=== PATIENT | female | born 1955 | race Caucasian/White ===

== ENCOUNTER 2019-06-04 23:00 | Emergency (ER) | payer MEDICARE, MEDICAID ==
[~2019-06-04] VITALS: Ht 157.5 cm; Wt 78.0 kg
[~2019-06-04 23:00] MED LIST: ACET-1013 PO; ALBU18HF2 INH; BAC10T PO; BUSP10TA11 PO; CALC-1197 PO; DILT120C52 PO; DULO-31 PO; FENO160T PO; FURO40TA4 PO; LEVO50TA67 PO; LISI40TA4 PO; MAGN400C PO; OMEP-50 PO; QUET-1 PO
--- NOTE | 2019-06-04 23:41 | NUR ---
PT HAS RETURNED FROM CT AND DR. FENG BACK IN ROOM TO UPDATED PT AND FAMILY THAT SHE DID A PRELIMINARY READ AND DOES NOT SEE ANY FRACTURES. PT TO BE NOP UNTIL FINAL READ. A&OX4.
[2019-06-04] MEDS ORDERED: LIDOcaine 1% W/epiNEPHrine 1:200,000 10ml vial IJ ONE (23:55)
--- NOTE | 2019-06-05 01:40 | NUR ---
PTS LEFT EYE BROW LAC IRRIGATED, MD REPROTS SHE DOES NOT WANT SUTURES BUT MAY BE AGREEABLE TO GLUE. PT WITH SON IN LAW, JOE, AT BEDSIDE.
[2019-06-05 02:17] VITALS: BP 141/94
--- NOTE | 2019-06-05 02:26 | NUR ---
PT AMBULATING WITH STEAD GAIT USING WALKER AND NO ASSIST. PT REPROTS SHE FEELS GOOD AND IS READY TO RETURNE TO [facility].
--- NOTE | 2019-06-05 02:47 | NUR ---
report called to marquis storey. lori jones pt will usually be transported [facility]. i will have gloria mcclendon work on this.
[2019-06-05] MEDS ORDERED: acetaminophen 325mg tablet PO ONE (02:55)
== END 2019-06-05 04:46 | disposition home or self-care (01) ==
LOC: ER 23:00
DX: S01.81XA Laceration without foreign body of other part of head, initial encounter (principal); I11.0 Hypertensive heart disease with heart failure; I50.9 Heart failure, unspecified; J44.9 Chronic obstructive pulmonary disease, unspecified; K21.9 Gastro-esophageal reflux disease without esophagitis; E05.90 Thyrotoxicosis, unspecified without thyrotoxic crisis or storm; Z86.711 Personal history of pulmonary embolism; Z72.89 Other problems related to lifestyle; Z98.890 Other specified postprocedural states; Z88.8 Allergy status to other drugs, medicaments and biological substances; Z79.899 Other long term (current) drug therapy; W06.XXXA Fall from bed, initial encounter; Y93.89 Activity, other specified; Y92.89 Other specified places as the place of occurrence of the external cause; Y99.8 Other external cause status
CPT/HCPCS: 12011; 70450; 70486; 93005; 99285

== ENCOUNTER 2019-06-07 20:25 | Emergency (ER) | payer MEDICARE, MEDICAID ==
[~2019-06-07] VITALS: Ht 157.5 cm; Wt 77.8 kg
[2019-06-07 20:36] VITALS: BP 150/86
--- NOTE | 2019-06-07 21:00 | NUR ---
DR VILLA AT BEDSIDE EVALUATING PT, PT DOES NOT NEED IV START.
[2019-06-07] MEDS ORDERED: acetaminophen 325mg tablet PO ONE (21:35)
--- NOTE | 2019-06-07 21:43 | NUR ---
DR. Lyon CLEARED PT OF ANY NEW HIP INJURIES. PT WAS GIVEN PO TYLENOL.
[2019-06-08] MEDS ORDERED: QUET100T33 PO (23:35)
== END 2019-06-07 21:42 | disposition home or self-care (01) ==
LOC: ER 20:26
DX: S00.83XD Contusion of other part of head, subsequent encounter (principal); S00.03XD Contusion of scalp, subsequent encounter; F07.81 Postconcussional syndrome; I50.9 Heart failure, unspecified; I11.0 Hypertensive heart disease with heart failure; J44.9 Chronic obstructive pulmonary disease, unspecified; I48.0 Paroxysmal atrial fibrillation; Z79.01 Long term (current) use of anticoagulants; K21.9 Gastro-esophageal reflux disease without esophagitis; Z72.89 Other problems related to lifestyle; Z88.8 Allergy status to other drugs, medicaments and biological substances; Z79.1 Long term (current) use of non-steroidal anti-inflammatories (NSAID); Z79.899 Other long term (current) drug therapy; W06.XXXD Fall from bed, subsequent encounter
CPT/HCPCS: 70450; 99284

== ENCOUNTER 2019-06-08 20:37 | Inpatient (IN) | payer MEDICARE, MEDICAID ==
[~2019-06-08] VITALS: Ht 160 cm; Wt 80.0 kg
[2019-06-08] MEDS ORDERED: pantoprazole 40 MG vial IV ONE (21:25)
[2019-06-08 21:32] LABS: BASOPHILS % (AUTO) 0.7 % (0-1); EOSINOPHILS % (AUTO) 0.4 % (0-6); LYMPHOCYTES # (AUTO) 0.8 X10'3 (1.1-4.8); MEAN CORPUSCULAR HEMOGLOBIN 32.2 PG (27.0-31.0); MEAN CORPUSCULAR HGB CONC 34.1 g/dL (33.0-36.5); MEAN CORPUSCULAR VOLUME 94.5 FL (78-98); MEAN PLATELET VOLUME 9.3 FL (7.4-10.4); MONOCYTES # (AUTO) 0.6 X10'3 (0-0.9); MONOCYTES % (AUTO) 9.7 % (2-12); NEUTROPHILS # (AUTO) 4.7 X10'3 (1.8-7.7); NEUTROPHILS % (AUTO) 76.2 % (42-75); PLATELET COUNT 213 X10'3 (140-440); RED BLOOD COUNT 1.66 X10'6 (4.20-5.60); RED CELL DISTRIBUTION WIDTH 17.1 % (11.5-14.5); WHITE BLOOD COUNT 6.2 X10'3 (4.5-11.0)
[2019-06-08 21:36] LABS: HEMATOCRIT 15.7 % (35.0-45.0); HEMOGLOBIN 5.3 g/dl (12.0-16.0)
[2019-06-08 21:38] LABS: OCCULT BLOOD STOOL POSITIVE (Neg)
[2019-06-08 21:43] LABS: ALANINE AMINOTRANSFERASE 41 U/L (12-78); ALBUMIN 2.3 G/DL (3.4-5.0); ALBUMIN/GLOBULIN RATIO 0.7 (1.1-1.5); ALKALINE PHOSPHATASE 79 IU/L (46-116); ANION GAP 9 (8-16); ASPARTATE AMINO TRANSFERASE 96 U/L (10-37); BILIRUBIN,TOTAL 0.6 MG/DL (0.1-1.0); BLOOD UREA NITROGEN 65 MG/DL (7-18); BUN/CREATININE RATIO 22.4 (6.6-38.0); CALCIUM 8.2 MG/DL (8.5-10.1); CHLORIDE 112 MMOL/L (99-107); GLUCOSE 110 MG/DL (70-104); SODIUM 145 MMOL/L (135-145); TOTAL CARBON DIOXIDE 24.4 MMOL/L (24-32); TOTAL PROTEIN 5.7 G/DL (6.4-8.2); eGFR 16 ML/MIN
--- NOTE | 2019-06-08 21:45 | NUR ---
Protonix drip time changed to start now.
[2019-06-08 21:46] LABS: CLARITY,URINE SLIGHTLY CLOUDY (Clear); COLOR,URINE YELLOW (Yellow); GLUCOSE, URINE NEGATIVE (Neg); KETONES,URINE NEGATIVE (Neg); LEUKOCYTE ESTERASE ,URINE NEGATIVE (Neg); NITRITES, URINE NEGATIVE (Neg); OCCULT BLOOD,URINE SMALL (Neg); PROTEIN,URINE >=300 mg/dl (Neg); UROBILINOGEN,URINE 0.2 E.U/dL (0.2-1.0)
[2019-06-08 21:51] LABS: PARTIAL THROMBOPLASTIN TIME 37 SECONDS (22-32)
[2019-06-08 21:52] LABS: POTASSIUM 6.9 MMOL/L (3.5-5.1)
[2019-06-08 21:54] LABS: UA COLLECTION TYPE STRAIGHT CATH
[2019-06-08 21:55] LABS: AMORPHOUS PHOSPHATES 2+; BACTERIA,URINE FEW /HPF (Neg); RBC,URINE 0-2 /HPF (0-2); SQUAMOUS EPITHELIAL CELL,UR FEW /LPF (FEW); WBC,URINE 0-4 /HPF (0-4)
[2019-06-08] MEDS ORDERED: dextrose 50%-water 50ml dispensing syringe IV ONE (22:05)
[2019-06-08] MEDS ORDERED: insulin regular, human 10 units/0.1 ml syringe IV ONE (22:05)
[2019-06-08] MEDS ORDERED: albuterol 2.5 MG/3 ML nebule NEB ONE (22:05)
[2019-06-08] MEDS ORDERED: sodium bicarbonate (8.4%) 1 mEq/ml syringe IV ONE (22:05)
[2019-06-08] MEDS ORDERED: insulin regular, human U-100 3ml vial - multi-dose IV ONE (22:10)
[2019-06-08] MEDS ORDERED: sodium bicarbonate (8.4%) inj. 1 MEQ/ML ML IV ONE (22:10)
[2019-06-08] MEDS: pantoprazole 40MG/NS 100ML BAG 100 ML IV SCH (22:23)
[2019-06-08 22:25] VITALS: BP 136/80
[2019-06-08] MEDS ORDERED: calcium gluconate inj. 1 GM in normal saline 100ml IV soln 90 ML IV ONE (22:25)
[2019-06-08] MEDS ORDERED: sodium polystyrene sulfonate 15gm/60ml oral suspension PO ONE (22:25)
[2019-06-08] MEDS ORDERED: OLANZapine 5mg rapidly disint. tablet PO ONE (22:40)
[2019-06-08 22:44] VITALS: BP 95/58
--- NOTE | 2019-06-08 22:45 | NUR ---
MD SHUKLA at bedside for re-evaluation, pt having increasing confusion, unable to follow commands, MD ordered Haldol/Ativan.
[2019-06-08] MEDS ORDERED: LORazepam 2 mg/ml vial IV ONE (22:55)
[2019-06-08] MEDS ORDERED: haloperidol lactate 5mg/ml inj IM STA (23:14)
[2019-06-08 23:35] VITALS: BP 140/87
[2019-06-08] MEDS ORDERED: QUET100T33 PO (23:35)
[2019-06-08] MEDS ORDERED: diphenhydrAMINE 50 mg/ml inj IV ONE (23:50)
[2019-06-08 23:59] VITALS: BP 147/87
[2019-06-09] VITALS (15 sets, daily range): BP systolic 118–168; BP diastolic 66–107
--- NOTE | 2019-06-09 | NUR ---
Haldol and Ativan have had minimal effects, pt still unable to follow commands, MD mcguire at bedside for evaluation, verbal order for Benadryl IV 25mg given, with no improvement in pt condition.
[2019-06-09] MEDS ORDERED: diphenhydrAMINE 50 mg/ml inj IV ONE (00:05)
[2019-06-09] MEDS ORDERED: morphine 4 MG/ML inj SYRINge ONE (00:14)
[2019-06-09] MEDS ORDERED: morphine 4 MG/ML inj SYRINge IV ONE (00:15)
--- NOTE | 2019-06-09 00:35 | NUR ---
Pt finally appears to be sleeping, snoring respirations, pt spo2 88, repositioned pt and placed her on 2 lpm oxygen, spo2 96%. MD Mcleod at bedside, aware, pt will be consulted for ICU admission.
[2019-06-09] MEDS ORDERED: furosemide 10 MG/1 ML 10ml inj IV ONE (00:50)
[2019-06-09] MEDS ORDERED: pantoprazole 40MG/NS 100ML BAG 100 ML IV SCH (01:00)
--- NOTE | 2019-06-09 01:00 | NUR ---
Pt tolerated blood transfusions well, lung clear equal bilateral, verbal order from MD Mcleod for 40 mg Lasix IV for pt heart failure history.
[2019-06-09] MEDS: pantoprazole 40MG/NS 100ML BAG 100 ML IV SCH ×5 (01:49→21:24)
[2019-06-09 01:50] LABS: BASOPHILS % (AUTO) 0.7 % (0-1); EOSINOPHILS % (AUTO) 0.2 % (0-6); HEMOGLOBIN 7.4 g/dl (12.0-16.0); LYMPHOCYTES # (AUTO) 0.7 X10'3 (1.1-4.8); LYMPHOCYTES % (AUTO) 12.1 % (21-51); MEAN CORPUSCULAR HEMOGLOBIN 31.4 PG (27.0-31.0); MEAN CORPUSCULAR HGB CONC 34.1 g/dL (33.0-36.5); MEAN CORPUSCULAR VOLUME 92.2 FL (78-98); MEAN PLATELET VOLUME 9.3 FL (7.4-10.4); MONOCYTES # (AUTO) 0.8 X10'3 (0-0.9); MONOCYTES % (AUTO) 13.5 % (2-12); NEUTROPHILS # (AUTO) 4.4 X10'3 (1.8-7.7); NEUTROPHILS % (AUTO) 73.5 % (42-75); PLATELET COUNT 189 X10'3 (140-440); RED BLOOD COUNT 2.34 X10'6 (4.20-5.60); RED CELL DISTRIBUTION WIDTH 16.2 % (11.5-14.5)
[2019-06-09 01:56] LABS: ALANINE AMINOTRANSFERASE 42 U/L (12-78); ALBUMIN 2.1 G/DL (3.4-5.0); ALBUMIN/GLOBULIN RATIO 0.6 (1.1-1.5); ALKALINE PHOSPHATASE 75 IU/L (46-116); ANION GAP 10 (8-16); ASPARTATE AMINO TRANSFERASE 115 U/L (10-37); BLOOD UREA NITROGEN 64 MG/DL (7-18); BUN/CREATININE RATIO 23.2 (6.6-38.0); CALCIUM 8.4 MG/DL (8.5-10.1); CHLORIDE 113 MMOL/L (99-107); CREATININE 2.76 MG/DL (0.40-0.90); GLUCOSE 94 MG/DL (70-104); SODIUM 144 MMOL/L (135-145); TOTAL CARBON DIOXIDE 21.5 MMOL/L (24-32); TOTAL PROTEIN 5.4 G/DL (6.4-8.2); eGFR 17 ML/MIN
--- NOTE | 2019-06-09 01:57 | NUR ---
JOE: SON IN LAW PHONE NUMBER [phone]
[2019-06-09 01:59] LABS: POTASSIUM 6.4 MMOL/L (3.5-5.1)
[2019-06-09 02:20] LABS: HEMATOCRIT 21.6 % (35.0-45.0)
[2019-06-09] MEDS ORDERED: acetaminophen 325mg tablet PO PRN (02:30)
[2019-06-09] MEDS ORDERED: sodium polystyrene sulfonate 15gm/60ml oral suspension PR ONE (02:30)
[2019-06-09] MEDS ORDERED: ondansetron/PF 4mg/2ml inj IV PRN (02:30)
--- NOTE | 2019-06-09 02:49 | NUR ---
Pt. moved to ED room 16 for close monitoring.
[2019-06-09] MEDS: normal saline 1000ml 1,000 ML IV SCH (02:55)
[2019-06-09] MEDS: morphine 2 MG/ML inj. syringe IV PRN ×4 (03:03→16:35)
[2019-06-09 04:20] LABS: BASOPHILS % (AUTO) 0.5 % (0-1); EOSINOPHILS % (AUTO) 0.1 % (0-6); HEMATOCRIT 23.3 % (35.0-45.0); HEMOGLOBIN 7.8 g/dl (12.0-16.0); LYMPHOCYTES % (AUTO) 15.2 % (21-51); MEAN CORPUSCULAR HEMOGLOBIN 30.9 PG (27.0-31.0); MEAN CORPUSCULAR HGB CONC 33.5 g/dL (33.0-36.5); MEAN CORPUSCULAR VOLUME 92.1 FL (78-98); MEAN PLATELET VOLUME 9.4 FL (7.4-10.4); MONOCYTES # (AUTO) 0.8 X10'3 (0-0.9); NEUTROPHILS # (AUTO) 4.6 X10'3 (1.8-7.7); NEUTROPHILS % (AUTO) 72.2 % (42-75); PLATELET COUNT 206 X10'3 (140-440); RED BLOOD COUNT 2.53 X10'6 (4.20-5.60); RED CELL DISTRIBUTION WIDTH 16.7 % (11.5-14.5); WHITE BLOOD COUNT 6.3 X10'3 (4.5-11.0)
[2019-06-09 05:13] LABS: ALANINE AMINOTRANSFERASE 49 U/L (12-78); ALBUMIN 2.2 G/DL (3.4-5.0); ALBUMIN/GLOBULIN RATIO 0.6 (1.1-1.5); ALKALINE PHOSPHATASE 80 IU/L (46-116); ANION GAP 12 (8-16); ASPARTATE AMINO TRANSFERASE 124 U/L (10-37); BLOOD UREA NITROGEN 64 MG/DL (7-18); CALCIUM 8.1 MG/DL (8.5-10.1); CHLORIDE 113 MMOL/L (99-107); CREATININE 2.91 MG/DL (0.40-0.90); GLUCOSE 101 MG/DL (70-104); SODIUM 146 MMOL/L (135-145); TOTAL CARBON DIOXIDE 21.5 MMOL/L (24-32); TOTAL PROTEIN 5.7 G/DL (6.4-8.2); eGFR 16 ML/MIN
[2019-06-09 05:32] LABS: POTASSIUM 6.1 MMOL/L (3.5-5.1)
--- NOTE | 2019-06-09 06:51 | NUR ---
Patient in room ED 1. I have received report from Nikita LANE RN and had the opportunity to ask questions and assume patient care.
--- NOTE | 2019-06-09 07:30 | NUR ---
Patient arrived from ED. Patient is agitated, impulsive, and resistive to care, she is in 3 point restraints, EJ pulled out in transfer, patient confused and unable to orient to room. VS 97.7 AX, HR 74, RR 30, O2 90% 5L NC. Sitter at bedside.
[2019-06-09] MEDS ORDERED: baclofen 10mg tablet PO PRN (08:00)
[2019-06-09] MEDS: lisinopril 20mg tablet PO SCH ×2 (08:00→12:45)
[2019-06-09] MEDS: furosemide 20MG tablet PO SCH ×2 (08:00→12:45)
[2019-06-09] MEDS ORDERED: pantoprazole 40 MG vial IV SCH (08:00)
[2019-06-09] MEDS ORDERED: pantoprazole 40mg Tablet.DR PO SCH (08:00)
[2019-06-09] MEDS ORDERED: (Fenofibrate 160 MG) PO SCH (08:00)
[2019-06-09] MEDS: levoTHYROXINE 25mcg tablet PO SCH ×2 (08:00→12:45)
[2019-06-09 08:17] LABS: ALBUMIN 2.4 G/DL (3.4-5.0); ANION GAP 12 (8-16); BLOOD UREA NITROGEN 65 MG/DL (7-18); BUN/CREATININE RATIO 20.6 (6.6-38.0); CALCIUM 8.5 MG/DL (8.5-10.1); CHLORIDE 114 MMOL/L (99-107); CREATININE 3.15 MG/DL (0.40-0.90); GLUCOSE 87 MG/DL (70-104); SODIUM 148 MMOL/L (135-145); TOTAL CARBON DIOXIDE 22.5 MMOL/L (24-32); eGFR 15 ML/MIN
[2019-06-09 08:22] LABS: POTASSIUM 6.6 MMOL/L (3.5-5.1)
--- NOTE | 2019-06-09 08:28 | NUR ---
paged Daniela Wong. [phone]. Critical Potassium 6.6. Patient also has protonix gtt 20 ml/hr, Iv protonix 40mg BID and 40 mg protonix daily. Would you like her to get all 3? Derrek [phone]
[2019-06-09] MEDS ORDERED: dextrose 50%-water 50ml dispensing syringe IV ONE (08:55)
[2019-06-09] MEDS ORDERED: NORMAL SALINE IV SCH (08:55)
[2019-06-09] MEDS ORDERED: SODIUM BICARBONATE IV SCH (08:55)
[2019-06-09] MEDS ORDERED: SODIUM ZIRCONIUM CYCLOSILICATE 10 GM POWD.PACK PO ONE (08:55)
[2019-06-09] MEDS ORDERED: calcium chloride inj. 1,000 MG in normal saline 100ml IV soln 90 ML IV ONE (08:55)
[2019-06-09] MEDS ORDERED: insulin regular, human U-100 3ml vial - multi-dose IV ONE (08:55)
--- NOTE | 2019-06-09 10:12 | NUR ---
PAGER ID: [phone] MESSAGE: PLEASE CALL ELIUD LLAMAS REGARDING [id number] DAWKINS. ELIUD LLAMAS
--- NOTE | 2019-06-09 10:21 | NUR ---
Patient transferred to ICU at 1015 to room 2041, report given to Sara ENNIS.
[2019-06-09] MEDS ORDERED: ziprasidone IM 20mg inj **IM only IM STA (10:26)
[2019-06-09] MEDS ORDERED: albuterol 2.5 MG/3 ML nebule CONTNEB ONE (10:50)
[2019-06-09] MEDS ORDERED: LORazepam 2 mg/ml vial ONE (10:53)
[2019-06-09] MEDS: LORazepam 2 mg/ml vial IV PRN ×3 (10:54→23:17)
[2019-06-09] MEDS: sodium bicarbonate (8.4%) inj. 75 MEQ in dextrose 5% water 500ml 500 ML IV SCH ×3 (12:17→22:01)
[2019-06-09] MEDS: duloxetine 30mg CAPSULE.DR PO SCH (12:19)
[2019-06-09] MEDS: diltiazem CD 120mg capsule (once-daily) PO SCH (12:41)
[2019-06-09] MEDS: busPIRone 5mg tablet PO SCH ×2 (12:41→23:58)
[2019-06-09] MEDS: SODIUM ZIRCONIUM CYCLOSILICATE 10 GM POWD.PACK PO SCH ×2 (13:00→22:01)
[2019-06-09 13:03] LABS: ALBUMIN 2.6 G/DL (3.4-5.0); ANION GAP 16 (8-16); BLOOD UREA NITROGEN 67 MG/DL (7-18); BUN/CREATININE RATIO 21.2 (6.6-38.0); CALCIUM 8.8 MG/DL (8.5-10.1); CHLORIDE 114 MMOL/L (99-107); CREATININE 3.16 MG/DL (0.40-0.90); GLUCOSE 87 MG/DL (70-104); POTASSIUM 5.1 MMOL/L (3.5-5.1); SODIUM 150 MMOL/L (135-145); TOTAL CARBON DIOXIDE 20.3 MMOL/L (24-32); eGFR 15 ML/MIN
[2019-06-09] MEDS ORDERED: ziprasidone IM 20mg inj **IM only IM ONE (17:15)
--- NOTE | 2019-06-09 18:20 | NUR ---
Patient in room ICU 2041. I have received report from LOLI Callahan and had the opportunity to ask questions and assume patient care. Patient is restrained x3, Sitter at bedside.
--- NOTE | 2019-06-09 18:20 | NUR ---
Problems reprioritized. Patient report given, questions answered & plan of care reviewed with LOLI Bateman.
[2019-06-09 18:44] LABS: ALBUMIN 2.3 G/DL (3.4-5.0); ANION GAP 12 (8-16); BLOOD UREA NITROGEN 69 MG/DL (7-18); BUN/CREATININE RATIO 20.6 (6.6-38.0); CALCIUM 8.5 MG/DL (8.5-10.1); CHLORIDE 114 MMOL/L (99-107); CREATININE 3.35 MG/DL (0.40-0.90); GLUCOSE 95 MG/DL (70-104); POTASSIUM 5.4 MMOL/L (3.5-5.1); SODIUM 150 MMOL/L (135-145); TOTAL CARBON DIOXIDE 24.3 MMOL/L (24-32); eGFR 14 ML/MIN
[2019-06-09] MEDS ORDERED: non-formulary drug (Magnesium Oxide (Magnesium) 250 MG) PO SCH (21:00)
[2019-06-09] MEDS: calcium carbonate/vitamin D3 tablet PO SCH (23:58)
[2019-06-09] MEDS: quetiapine 100mg tablet PO SCH (23:58)
[2019-06-10] VITALS (24 sets, daily range): BP systolic 112–176; BP diastolic 56–121
[2019-06-10] MEDS: pantoprazole 40MG/NS 100ML BAG 100 ML IV SCH ×3 (01:00→08:15)
[2019-06-10 01:02] LABS: ALBUMIN 2.1 G/DL (3.4-5.0); ANION GAP 9 (8-16); BLOOD UREA NITROGEN 69 MG/DL (7-18); BUN/CREATININE RATIO 20.4 (6.6-38.0); CHLORIDE 114 MMOL/L (99-107); CREATININE 3.39 MG/DL (0.40-0.90); GLUCOSE 97 MG/DL (70-104); POTASSIUM 4.5 MMOL/L (3.5-5.1); SODIUM 150 MMOL/L (135-145); TOTAL CARBON DIOXIDE 27.4 MMOL/L (24-32); eGFR 14 ML/MIN
[2019-06-10] MEDS: sodium bicarbonate (8.4%) inj. 75 MEQ in dextrose 5% water 500ml 500 ML IV SCH ×2 (03:55→05:16)
--- NOTE | 2019-06-10 05:47 | NUR ---
2100 - 0530: Patient remained restrained with sitter at bedside. Patient wakes up suddenly, pulls violently at restraints, unable to orient to surroundings. Ativan administered for agitation. Oral care provided throughout shift with oral swabs and mouth moisturizer applied. Lip balm applied multiple times. Right nare intermittently bleeding, controlled with external pressure.
[2019-06-10 06:04] LABS: BASOPHILS % (AUTO) 0.4 % (0-1); EOSINOPHILS % (AUTO) 0.4 % (0-6); HEMATOCRIT 23.2 % (35.0-45.0); HEMOGLOBIN 7.9 g/dl (12.0-16.0); LYMPHOCYTES # (AUTO) 1.3 X10'3 (1.1-4.8); LYMPHOCYTES % (AUTO) 17.2 % (21-51); MEAN CORPUSCULAR HEMOGLOBIN 31.4 PG (27.0-31.0); MEAN CORPUSCULAR VOLUME 92.5 FL (78-98); MEAN PLATELET VOLUME 9.5 FL (7.4-10.4); MONOCYTES # (AUTO) 0.7 X10'3 (0-0.9); MONOCYTES % (AUTO) 9.3 % (2-12); NEUTROPHILS # (AUTO) 5.5 X10'3 (1.8-7.7); NEUTROPHILS % (AUTO) 72.7 % (42-75); PLATELET COUNT 221 X10'3 (140-440); RED CELL DISTRIBUTION WIDTH 17.6 % (11.5-14.5); WHITE BLOOD COUNT 7.6 X10'3 (4.5-11.0)
--- NOTE | 2019-06-10 06:30 | NUR ---
Patient in room ICU 2041. I have received report from LOLI MARQUES and had the opportunity to ask questions and assume patient care.
--- NOTE | 2019-06-10 06:37 | NUR ---
Problems reprioritized. Patient report given, questions answered & plan of care reviewed with LOLI Bermudez.
[2019-06-10 06:38] LABS: ALANINE AMINOTRANSFERASE 67 U/L (12-78); ALBUMIN/GLOBULIN RATIO 0.6 (1.1-1.5); ALKALINE PHOSPHATASE 72 IU/L (46-116); ANION GAP 8 (8-16); ASPARTATE AMINO TRANSFERASE 141 U/L (10-37); BILIRUBIN,TOTAL 0.6 MG/DL (0.1-1.0); BLOOD UREA NITROGEN 66 MG/DL (7-18); BUN/CREATININE RATIO 19.9 (6.6-38.0); CALCIUM 7.8 MG/DL (8.5-10.1); CHLORIDE 114 MMOL/L (99-107); CREATININE 3.31 MG/DL (0.40-0.90); GLUCOSE 97 MG/DL (70-104); POTASSIUM 4.1 MMOL/L (3.5-5.1); SODIUM 149 MMOL/L (135-145); TOTAL CARBON DIOXIDE 27.1 MMOL/L (24-32); TOTAL PROTEIN 5.2 G/DL (6.4-8.2); eGFR 14 ML/MIN
[2019-06-10] MEDS: LORazepam 2 mg/ml vial IV PRN ×2 (07:09→17:58)
[2019-06-10] MEDS: albuterol 2.5 MG/3 ML nebule NEB PRN ×2 (07:21→19:12)
[2019-06-10] MEDS ORDERED: ziprasidone IM 20mg inj **IM only IM ONE ×2 (07:45→19:20)
[2019-06-10] MEDS: busPIRone 5mg tablet PO SCH ×2 (07:57→20:58)
[2019-06-10] MEDS: duloxetine 30mg CAPSULE.DR PO SCH (07:58)
[2019-06-10] MEDS: diltiazem CD 120mg capsule (once-daily) PO SCH (07:59)
[2019-06-10] MEDS: SODIUM ZIRCONIUM CYCLOSILICATE 10 GM POWD.PACK PO SCH (08:00)
[2019-06-10] MEDS: furosemide 20MG tablet PO SCH ×2 (08:00→08:45)
[2019-06-10] MEDS: fenofibrate 145mg tablet PO SCH (08:06)
[2019-06-10] MEDS: levoTHYROXINE 25mcg tablet PO SCH (08:06)
[2019-06-10] MEDS: lisinopril 20mg tablet PO SCH (08:07)
[2019-06-10] MEDS: dexmedetomidin/NS 400mcg/100ml 100 ML IV SCH ×2 (10:03→19:05)
--- NOTE | 2019-06-10 10:28 | NUR ---
PAGED DIETARY:PLEASE CALL MARKY [phone] R/T [phone], NEW ORDERS FOR TF. TY
--- NOTE | 2019-06-10 11:29 | NUR ---
TF/Floyd Consult: Pt admit w/ critical K 6.9 and increasing confusion. DX Baclofen overdose, acute encephalopathy, anemia and GIB, COPD, and CKD IV secondary to HTN per MD note. Floyd 11; pt has R wrist skin tear but no open wounds noted. BUE +4 severe edema present; receiving lasix. K now WNL. EN recs below given pt not intubated at this time. Will monitor for EN tolerance. Rec: 1. NGTF per MD; using Vital AF at 60ml/hr goal; to provide 1440ml fluid, 1728 kcals, 1166ml free water, and 108g protein. 2. water flush 150ml Q4 3. PALB Q /; daily wts 4. routine bowel care 5. monitor for EN tolerance 6. advance diet as medically indicated to heart healthy/renal Addendum: 06/10/19 at [address] Amended: Links added.
--- NOTE | 2019-06-10 17:15 | NUR ---
HR 64, NEW BIGEM. PVCS. LAMAR DIGGS RN IN, HOLDING PRECEDEX AT 1720. HR WAS DOWN TO 58 BEFORE STOPPING. BIGEM PVCS STOPPED, HR 64. BP 141/76.
--- NOTE | 2019-06-10 18:01 | NUR ---
INCREASED AGITATION, PRECEDEX RE STARTED @0.4 MCG/KG/HOUR. DISCUSSED WITH LAMAR DIGGS RN, ADM ATIVAN 1MG IV PER RECOMMENDATION.
--- NOTE | 2019-06-10 18:20 | NUR ---
Patient in room ICU 2041. I have received report from LOLI Bermudez and had the opportunity to ask questions and assume patient care. Patient thrashing around pulling on restraints. Patient answers to name, does not respond to commands. Sitter at bedside. Patient with Precedex infusing. heart rate 114. respiratory rate 20-30. Patient on 100% O2 via NRBM. Pupils equal and reactive.
--- NOTE | 2019-06-10 18:23 | NUR ---
Problems reprioritized. Patient report given, questions answered & plan of care reviewed with LOLI MARQUES. CONTINUES WITH AGGITATION. APPLIED 100% NRB, RE 02 SATS 85% WITH AGGITATION.
[2019-06-10 19:06] LABS: ABG BASE EXCESS -0.4 mmol/L (-2.0-3.0); ABG HCO3 24.2 mmol/L (22.0-26.0); ABG OXYGEN SATURATION 90.7 % (95-98); ABG PCO2 (T) 37.8 mmHg (35.0-45.0); ABG PO2 (T) 57.5 mmHg (83-108); ALLEN'S TEST POSITIVE; FCOHb 0.3 % (0.5-1.5); FLOW 15 L/min; FMetHb 0.1 % (0.3-1.12); FO2Hb 90.3 % (94-100); PATIENT TEMPERATURE 36.3; TOTAL HEMOGLOBIN 9.7 G/dl (12.0-16.0)
--- NOTE | 2019-06-10 19:15 | NUR ---
Late entry: Phone call to Adarsh Mclaughlin NP re: increased agitation. ABG results PaO2 60 on 15 lpm NRBM. and titration of Precedex. Order for 10 mg Geodon IM once.
[2019-06-10] MEDS: quetiapine 100mg tablet PO SCH (20:57)
[2019-06-10] MEDS: piperacillin/tazo 3.375gm/50ml 50 ML IV SCH (20:57)
[2019-06-10] MEDS: calcium carbonate/vitamin D3 tablet PO SCH (20:57)
[2019-06-10] MEDS: pantoprazole 40 MG vial IV SCH (20:57)
[2019-06-10] MEDS: lactobacillus rhamnosus 10,000 MMU CELLS/CAPSULE PO SCH (20:58)
[2019-06-11] VITALS (24 sets, daily range): BP systolic 117–178; BP diastolic 62–109
[2019-06-11] MEDS: morphine 2 MG/ML inj. syringe IV PRN ×4 (01:35→19:22)
[2019-06-11] MEDS: LORazepam 2 mg/ml vial IV PRN ×4 (01:50→19:01)
[2019-06-11] MEDS: normal saline 1000ml 1,000 ML IV SCH (01:55)
--- NOTE | 2019-06-11 02:30 | NUR ---
0115: Patient is awake, thrashing in bed, pulling on restraints, attempting to sit up in bed. Patient not following commands. Patient remained restless and agitated, SpO2 decreased to the 70's patient placed on high flow salter. with increased Sp02 to the low 90's. Precedex increased without effect. Ativan administered per order. Patient with improved oxygenation. Placed back on nasal cannula.
[2019-06-11] MEDS: dexmedetomidin/NS 400mcg/100ml 100 ML IV SCH ×3 (05:02→21:42)
[2019-06-11 05:34] LABS: BASOPHILS % (AUTO) 0.4 % (0-1); EOSINOPHILS # (AUTO) 0.1 X10'3 (0-0.9); EOSINOPHILS % (AUTO) 1.1 % (0-6); HEMATOCRIT 22.6 % (35.0-45.0); HEMOGLOBIN 7.7 g/dl (12.0-16.0); LYMPHOCYTES # (AUTO) 0.9 X10'3 (1.1-4.8); MEAN CORPUSCULAR HEMOGLOBIN 31.9 PG (27.0-31.0); MEAN CORPUSCULAR HGB CONC 34.1 g/dL (33.0-36.5); MEAN CORPUSCULAR VOLUME 93.5 FL (78-98); MEAN PLATELET VOLUME 9.3 FL (7.4-10.4); MONOCYTES # (AUTO) 0.6 X10'3 (0-0.9); MONOCYTES % (AUTO) 11.2 % (2-12); NEUTROPHILS # (AUTO) 3.6 X10'3 (1.8-7.7); NEUTROPHILS % (AUTO) 70.3 % (42-75); PLATELET COUNT 205 X10'3 (140-440); RED BLOOD COUNT 2.42 X10'6 (4.20-5.60); RED CELL DISTRIBUTION WIDTH 17.5 % (11.5-14.5); WHITE BLOOD COUNT 5.1 X10'3 (4.5-11.0)
[2019-06-11 05:50] LABS: ALANINE AMINOTRANSFERASE 92 U/L (12-78); ALBUMIN 1.7 G/DL (3.4-5.0); ALBUMIN/GLOBULIN RATIO 0.5 (1.1-1.5); ALKALINE PHOSPHATASE 70 IU/L (46-116); ANION GAP 8 (8-16); ASPARTATE AMINO TRANSFERASE 151 U/L (10-37); BILIRUBIN,TOTAL 0.6 MG/DL (0.1-1.0); BLOOD UREA NITROGEN 67 MG/DL (7-18); BUN/CREATININE RATIO 21.3 (6.6-38.0); CALCIUM 7.2 MG/DL (8.5-10.1); CHLORIDE 113 MMOL/L (99-107); CREATININE 3.15 MG/DL (0.40-0.90); GLUCOSE 142 MG/DL (70-104); POTASSIUM 3.6 MMOL/L (3.5-5.1); PREALBUMIN 16.4 MG/DL (19-36); SODIUM 150 MMOL/L (135-145); TOTAL CARBON DIOXIDE 29.1 MMOL/L (24-32); TOTAL PROTEIN 4.9 G/DL (6.4-8.2); eGFR 15 ML/MIN
--- NOTE | 2019-06-11 06:15 | NUR ---
Patient in room ICU 2041. I have received report from and had the opportunity to ask questions and assume patient care.
--- NOTE | 2019-06-11 06:30 | NUR ---
Patient in room ICU 2041. I have received report from Bhavana ENNIS and had the opportunity to ask questions and assume patient care.
--- NOTE | 2019-06-11 06:42 | NUR ---
Problems reprioritized. Patient report given, questions answered & plan of care reviewed with LOLI Welch.
[2019-06-11] MEDS: duloxetine 30mg CAPSULE.DR PO SCH ×2 (08:00→08:14)
--- NOTE | 2019-06-11 08:00 | NUR ---
med not administered Cymbalta DR not given -un-crushable med
[2019-06-11] MEDS: pantoprazole 40 MG vial IV SCH ×2 (08:11→21:22)
[2019-06-11] MEDS: piperacillin/tazo 3.375gm/50ml 50 ML IV SCH ×2 (08:11→21:23)
[2019-06-11] MEDS: furosemide 20MG tablet PO SCH (08:12)
[2019-06-11] MEDS: lisinopril 20mg tablet PO SCH (08:12)
[2019-06-11] MEDS: levoTHYROXINE 25mcg tablet PO SCH (08:13)
[2019-06-11] MEDS: fenofibrate 145mg tablet PO SCH (08:13)
[2019-06-11] MEDS: diltiazem CD 120mg capsule (once-daily) PO SCH (08:15)
[2019-06-11] MEDS: busPIRone 5mg tablet PO SCH ×2 (08:15→21:22)
[2019-06-11] MEDS: lactobacillus rhamnosus 10,000 MMU CELLS/CAPSULE PO SCH ×2 (08:15→21:22)
[2019-06-11] MEDS: dextrose 5%-water 1,000 ML IV SCH (11:42)
[2019-06-11] MEDS: furosemide 40mg/4ml inj IV SCH (11:42)
--- NOTE | 2019-06-11 18:14 | NUR ---
Problems reprioritized. Patient report given, questions answered & plan of care reviewed with .
[2019-06-11 18:25] LABS: ALANINE AMINOTRANSFERASE 118 U/L (12-78); ALBUMIN 1.9 G/DL (3.4-5.0); ALBUMIN/GLOBULIN RATIO 0.5 (1.1-1.5); ALKALINE PHOSPHATASE 87 IU/L (46-116); ANION GAP 5 (8-16); ASPARTATE AMINO TRANSFERASE 161 U/L (10-37); BILIRUBIN,TOTAL 0.6 MG/DL (0.1-1.0); BLOOD UREA NITROGEN 67 MG/DL (7-18); BUN/CREATININE RATIO 21.3 (6.6-38.0); CALCIUM 7.3 MG/DL (8.5-10.1); CHLORIDE 112 MMOL/L (99-107); CREATININE 3.15 MG/DL (0.40-0.90); GLUCOSE 171 MG/DL (70-104); POTASSIUM 3.8 MMOL/L (3.5-5.1); SODIUM 148 MMOL/L (135-145); TOTAL CARBON DIOXIDE 30.8 MMOL/L (24-32); TOTAL PROTEIN 5.4 G/DL (6.4-8.2); eGFR 15 ML/MIN
--- NOTE | 2019-06-11 19:54 | NUR ---
Spoke with Adarsh Mclaughlin NP re: increasing agitation despite Ativan, Morphine, and increased Precedex. NEW ORDER: change Morphine order 2 mg every 4 hours IV for mild to moderate pain. Add 4 mg Morphine every 4 hours IV for severe pain. Addendum: 06/11/19 at 8 by Magdalene Ordonez RN Also made Adarsh Mclaughlin NP aware of decreased oxygen saturation with agitation needing increased oxygen requirements. Will continue to monitor.
[2019-06-11] MEDS ORDERED: morphine 4 MG/ML inj SYRINge IV PRN (20:00)
[2019-06-11] MEDS: calcium carbonate/vitamin D3 tablet PO SCH (21:22)
[2019-06-11] MEDS: quetiapine 100mg tablet PO SCH (21:22)
[2019-06-11 21:56] LABS: ABG BASE EXCESS 5.3 mmol/L (-2.0-3.0); ABG HCO3 29.1 mmol/L (22.0-26.0); ABG PCO2 (T) 39.4 mmHg (35.0-45.0); ABG PH (T) 7.486 (7.350-7.450); ABG PO2 (T) 85.4 mmHg (83-108); ALLEN'S TEST POSITIVE; FCOHb 0.3 % (0.5-1.5); FMetHb 0.2 % (0.3-1.12); FO2Hb 95.5 % (94-100); PATIENT TEMPERATURE 37.1
[2019-06-11] MEDS: albuterol 2.5 MG/3 ML nebule NEB PRN (22:25)
[2019-06-12] VITALS (24 sets, daily range): BP systolic 117–144; BP diastolic 64–89
[2019-06-12] MEDS: dextrose 5%-water 1,000 ML IV SCH ×3 (00:15→21:36)
[2019-06-12] MEDS ORDERED: dextrose 50%-water 50ml dispensing syringe IV PRN ×2 (01:25)
[2019-06-12] MEDS ORDERED: dextrose ORAL solution 15 GM/59 ML bottle PO PRN ×2 (01:25)
[2019-06-12] MEDS ORDERED: MESSAGE TO PHARMACY PO ONE (01:25)
[2019-06-12] MEDS ORDERED: glucagon, human recombinant 1mg kit SUBCUT PRN (01:25)
[2019-06-12] MEDS: insulin regular, human U-100 3ml vial - multi-dose SQ SCH (02:41)
--- NOTE | 2019-06-12 04:30 | NUR ---
Patient awake, responds to name. Does not follow commands, Yelling. Patients son at bedside, patient seems to know him. Patient continues to yell and pull at restraints despite re-orientation. Patient given discontinue criteria for restraints. Patient continued to pull and fight.
[2019-06-12] MEDS: LORazepam 2 mg/ml vial IV PRN ×3 (04:38→15:39)
[2019-06-12 04:58] LABS: EOSINOPHILS # (AUTO) 0.2 X10'3 (0-0.9); EOSINOPHILS % (AUTO) 3.6 % (0-6); HEMATOCRIT 23.9 % (35.0-45.0); HEMOGLOBIN 8.2 g/dl (12.0-16.0); LYMPHOCYTES # (AUTO) 1.1 X10'3 (1.1-4.8); LYMPHOCYTES % (AUTO) 24.5 % (21-51); MEAN CORPUSCULAR HEMOGLOBIN 32.1 PG (27.0-31.0); MEAN CORPUSCULAR HGB CONC 34.3 g/dL (33.0-36.5); MEAN CORPUSCULAR VOLUME 93.5 FL (78-98); MEAN PLATELET VOLUME 9.2 FL (7.4-10.4); MONOCYTES # (AUTO) 0.5 X10'3 (0-0.9); MONOCYTES % (AUTO) 11.2 % (2-12); NEUTROPHILS # (AUTO) 2.7 X10'3 (1.8-7.7); NEUTROPHILS % (AUTO) 59.7 % (42-75); PLATELET COUNT 200 X10'3 (140-440); RED BLOOD COUNT 2.56 X10'6 (4.20-5.60); RED CELL DISTRIBUTION WIDTH 17.3 % (11.5-14.5); WHITE BLOOD COUNT 4.4 X10'3 (4.5-11.0)
[2019-06-12 05:14] LABS: ALANINE AMINOTRANSFERASE 104 U/L (12-78); ALBUMIN 1.7 G/DL (3.4-5.0); ALBUMIN/GLOBULIN RATIO 0.5 (1.1-1.5); ALKALINE PHOSPHATASE 76 IU/L (46-116); ANION GAP 7 (8-16); ASPARTATE AMINO TRANSFERASE 133 U/L (10-37); BILIRUBIN,TOTAL 0.6 MG/DL (0.1-1.0); BLOOD UREA NITROGEN 67 MG/DL (7-18); BUN/CREATININE RATIO 21.2 (6.6-38.0); CALCIUM 7.1 MG/DL (8.5-10.1); CHLORIDE 112 MMOL/L (99-107); CREATININE 3.16 MG/DL (0.40-0.90); GLUCOSE 152 MG/DL (70-104); HEMOGLOBIN A1C 6.1 % (4.5-6.2); POTASSIUM 3.8 MMOL/L (3.5-5.1); SODIUM 148 MMOL/L (135-145); TOTAL CARBON DIOXIDE 29.1 MMOL/L (24-32); TOTAL PROTEIN 5.1 G/DL (6.4-8.2); eGFR 15 ML/MIN
--- NOTE | 2019-06-12 06:27 | NUR ---
Patient in room ICU 2041. I have received report from Bhavana ENNIS and had the opportunity to ask questions and assume patient care.
--- NOTE | 2019-06-12 06:28 | NUR ---
Problems reprioritized. Patient report given, questions answered & plan of care reviewed with LOLI Elizalde.
[2019-06-12] MEDS: morphine 2 MG/ML inj. syringe IV PRN ×2 (06:47→17:44)
[2019-06-12] MEDS: furosemide 40mg/4ml inj IV SCH ×2 (07:30→21:36)
[2019-06-12] MEDS: diltiazem CD 120mg capsule (once-daily) PO SCH (07:30)
[2019-06-12] MEDS: busPIRone 5mg tablet PO SCH ×2 (07:30→21:18)
[2019-06-12] MEDS: lactobacillus rhamnosus 10,000 MMU CELLS/CAPSULE PO SCH ×2 (07:30→21:18)
[2019-06-12] MEDS: duloxetine 30mg CAPSULE.DR PO SCH (07:30)
[2019-06-12] MEDS: pantoprazole 40 MG vial IV SCH ×2 (07:30→20:05)
[2019-06-12] MEDS: fenofibrate 145mg tablet PO SCH (07:31)
[2019-06-12] MEDS: lisinopril 20mg tablet PO SCH (07:31)
[2019-06-12] MEDS: levoTHYROXINE 25mcg tablet PO SCH (07:31)
[2019-06-12] MEDS: piperacillin/tazo 3.375gm/50ml 50 ML IV SCH ×2 (07:33→20:01)
--- NOTE | 2019-06-12 15:29 | NUR ---
Per Dr. Vogel midline placement ok over PICC line placement. SINCERE PICC RN
--- NOTE | 2019-06-12 18:15 | NUR ---
Problems reprioritized. Patient report given, questions answered & plan of care reviewed with Charlotte ENNIS.
--- NOTE | 2019-06-12 18:24 | NUR ---
Patient in room ICU 2041. I have received report from LOLI CHIU and had the opportunity to ask questions and assume patient care.
[2019-06-12] MEDS: dexmedetomidin/NS 400mcg/100ml 100 ML IV SCH (18:31)
[2019-06-12] MEDS: albuterol 2.5 MG/3 ML nebule NEB PRN (19:57)
[2019-06-12] MEDS: insulin glargine (Lantus) pen - multi-dose SQ SCH (21:00)
[2019-06-12] MEDS: quetiapine 100mg tablet PO SCH (21:17)
[2019-06-12] MEDS: calcium carbonate/vitamin D3 tablet PO SCH (21:18)
[2019-06-13] VITALS (22 sets, daily range): BP systolic 118–160; BP diastolic 66–101
[2019-06-13] MEDS: normal saline 1000ml 1,000 ML IV SCH (02:29)
[2019-06-13 02:58] LABS: BASOPHILS % (AUTO) 0.8 % (0-1); EOSINOPHILS # (AUTO) 0.6 X10'3 (0-0.9); EOSINOPHILS % (AUTO) 13.8 % (0-6); HEMATOCRIT 25.3 % (35.0-45.0); HEMOGLOBIN 8.4 g/dl (12.0-16.0); LYMPHOCYTES # (AUTO) 1.1 X10'3 (1.1-4.8); LYMPHOCYTES % (AUTO) 24.7 % (21-51); MEAN CORPUSCULAR HEMOGLOBIN 31.1 PG (27.0-31.0); MEAN CORPUSCULAR HGB CONC 33.1 g/dL (33.0-36.5); MEAN CORPUSCULAR VOLUME 93.9 FL (78-98); MEAN PLATELET VOLUME 9.5 FL (7.4-10.4); MONOCYTES # (AUTO) 0.5 X10'3 (0-0.9); MONOCYTES % (AUTO) 11.4 % (2-12); NEUTROPHILS # (AUTO) 2.2 X10'3 (1.8-7.7); NEUTROPHILS % (AUTO) 49.3 % (42-75); PLATELET COUNT 207 X10'3 (140-440); RED BLOOD COUNT 2.69 X10'6 (4.20-5.60); RED CELL DISTRIBUTION WIDTH 17.7 % (11.5-14.5); WHITE BLOOD COUNT 4.5 X10'3 (4.5-11.0)
[2019-06-13 03:07] LABS: ALANINE AMINOTRANSFERASE 85 U/L (12-78); ALBUMIN 1.6 G/DL (3.4-5.0); ALBUMIN/GLOBULIN RATIO 0.5 (1.1-1.5); ALKALINE PHOSPHATASE 74 IU/L (46-116); ANION GAP 6 (8-16); ASPARTATE AMINO TRANSFERASE 81 U/L (10-37); BILIRUBIN,TOTAL 0.5 MG/DL (0.1-1.0); BLOOD UREA NITROGEN 72 MG/DL (7-18); BUN/CREATININE RATIO 24.4 (6.6-38.0); CALCIUM 7.1 MG/DL (8.5-10.1); CHLORIDE 108 MMOL/L (99-107); CREATININE 2.95 MG/DL (0.40-0.90); GLUCOSE 144 MG/DL (70-104); POTASSIUM 3.8 MMOL/L (3.5-5.1); SODIUM 145 MMOL/L (135-145); TOTAL CARBON DIOXIDE 31.1 MMOL/L (24-32); eGFR 16 ML/MIN
[2019-06-13] MEDS: dexmedetomidin/NS 400mcg/100ml 100 ML IV SCH ×3 (03:34→21:33)
[2019-06-13] MEDS: dextrose 5%-water 1,000 ML IV SCH ×3 (05:50→20:51)
[2019-06-13] MEDS: duloxetine 30mg CAPSULE.DR PO SCH (08:00)
[2019-06-13] MEDS: diltiazem CD 120mg capsule (once-daily) PO SCH (08:22)
[2019-06-13] MEDS: pantoprazole 40 MG vial IV SCH ×2 (08:22→20:44)
[2019-06-13] MEDS: lisinopril 20mg tablet PO SCH (08:22)
[2019-06-13] MEDS: fenofibrate 145mg tablet PO SCH (08:22)
[2019-06-13] MEDS: busPIRone 5mg tablet PO SCH ×2 (08:22→20:45)
[2019-06-13] MEDS: levoTHYROXINE 25mcg tablet PO SCH (08:22)
[2019-06-13] MEDS: lactobacillus rhamnosus 10,000 MMU CELLS/CAPSULE PO SCH ×2 (08:22→20:44)
[2019-06-13] MEDS: furosemide 40mg/4ml inj IV SCH ×2 (08:23→20:44)
[2019-06-13] MEDS: lactulose 20gm/30ml cup PO SCH ×2 (11:05→19:18)
--- NOTE | 2019-06-13 11:17 | NUR ---
Reassessment: Pt tolerating TF at goal; GRV WNL. LBM 06/08; to start lactulose today per corporate meeting planner at rounds for bowel care. Still receiving dextrose for hydration needs per MD. Will continue to monitor. Rec: 1. NGTF per MD; using Vital AF at 60ml/hr goal; to provide 1440ml fluid, 1728 kcals, 1166ml free water, and 108g protein. 2. water flush 150ml Q4 3. PALB Q /; daily wts 4. routine bowel care 5. monitor for EN tolerance 6. advance diet as medically indicated to heart healthy/renal Addendum: 06/13/19 at [address] Amended: Links added.
[2019-06-13] MEDS: piperacillin/tazo 3.375gm/50ml 50 ML IV SCH ×2 (11:50→20:44)
--- NOTE | 2019-06-13 18:20 | NUR ---
Patient in room ICU 2041. I have received report from Radha, and had the opportunity to ask questions and assume patient care.
[2019-06-13] MEDS: quetiapine 100mg tablet PO SCH (20:44)
[2019-06-13] MEDS: calcium carbonate/vitamin D3 tablet PO SCH (20:45)
[2019-06-13] MEDS: insulin glargine (Lantus) pen - multi-dose SQ SCH (20:46)
[2019-06-14] VITALS (20 sets, daily range): BP systolic 119–166; BP diastolic 63–100
[2019-06-14 03:44] LABS: BASOPHILS % (AUTO) 0.7 % (0-1); EOSINOPHILS # (AUTO) 0.7 X10'3 (0-0.9); EOSINOPHILS % (AUTO) 18.1 % (0-6); HEMATOCRIT 26.1 % (35.0-45.0); HEMOGLOBIN 8.8 g/dl (12.0-16.0); LYMPHOCYTES % (AUTO) 24.2 % (21-51); MEAN CORPUSCULAR HEMOGLOBIN 31.8 PG (27.0-31.0); MEAN CORPUSCULAR HGB CONC 33.9 g/dL (33.0-36.5); MEAN CORPUSCULAR VOLUME 93.7 FL (78-98); MEAN PLATELET VOLUME 9.5 FL (7.4-10.4); MONOCYTES # (AUTO) 0.5 X10'3 (0-0.9); MONOCYTES % (AUTO) 13.8 % (2-12); NEUTROPHILS # (AUTO) 1.7 X10'3 (1.8-7.7); NEUTROPHILS % (AUTO) 43.2 % (42-75); PLATELET COUNT 216 X10'3 (140-440); RED BLOOD COUNT 2.78 X10'6 (4.20-5.60); RED CELL DISTRIBUTION WIDTH 18.1 % (11.5-14.5)
[2019-06-14 03:58] LABS: ALANINE AMINOTRANSFERASE 58 U/L (12-78); ALBUMIN 1.5 G/DL (3.4-5.0); ALBUMIN/GLOBULIN RATIO 0.4 (1.1-1.5); ALKALINE PHOSPHATASE 83 IU/L (46-116); ANION GAP 8 (8-16); ASPARTATE AMINO TRANSFERASE 48 U/L (10-37); BILIRUBIN,TOTAL 0.5 MG/DL (0.1-1.0); BLOOD UREA NITROGEN 72 MG/DL (7-18); CALCIUM 7.4 MG/DL (8.5-10.1); CHLORIDE 103 MMOL/L (99-107); CREATININE 2.77 MG/DL (0.40-0.90); GLUCOSE 139 MG/DL (70-104); SODIUM 139 MMOL/L (135-145); TOTAL CARBON DIOXIDE 28.4 MMOL/L (24-32); TOTAL PROTEIN 4.9 G/DL (6.4-8.2); eGFR 17 ML/MIN
--- NOTE | 2019-06-14 05:18 | NUR ---
patient was very calm and cooperative. Had two bowel movements. Not complaining of any pain. She can't wait to see if the Dr. will remove her NG tube.
[2019-06-14] MEDS: dextrose 5%-water 1,000 ML IV SCH ×3 (05:29→21:35)
--- NOTE | 2019-06-14 06:19 | NUR ---
patient is doing well. No complains except the question when they gonna remove the NG tube. The knee immobilizers are removed. the patient is calm and cooperative and follow direction. Alert, oriented x4. Not complaining of any pain at this time
--- NOTE | 2019-06-14 06:30 | NUR ---
Problems reprioritized. Patient report given to Bárbara, questions answered & plan of care reviewed with .
--- NOTE | 2019-06-14 06:42 | NUR ---
Patient in room ICU 2041. I have received report from Valeria ENNIS and had the opportunity to ask questions and assume patient care.
[2019-06-14] MEDS: insulin regular, human U-100 3ml vial - multi-dose SQ SCH ×2 (08:31→14:17)
[2019-06-14] MEDS: lactobacillus rhamnosus 10,000 MMU CELLS/CAPSULE PO SCH ×2 (08:32→21:12)
[2019-06-14] MEDS: lactulose 20gm/30ml cup PO SCH ×2 (08:32→21:10)
[2019-06-14] MEDS: lisinopril 20mg tablet PO SCH (08:33)
[2019-06-14] MEDS: levoTHYROXINE 25mcg tablet PO SCH (08:33)
[2019-06-14] MEDS: duloxetine 30mg CAPSULE.DR PO SCH (08:33)
[2019-06-14] MEDS: busPIRone 5mg tablet PO SCH ×2 (08:33→21:12)
[2019-06-14] MEDS: fenofibrate 145mg tablet PO SCH (08:34)
[2019-06-14] MEDS: pantoprazole 40 MG vial IV SCH ×2 (08:34→21:09)
[2019-06-14] MEDS: diltiazem CD 120mg capsule (once-daily) PO SCH (08:35)
[2019-06-14] MEDS: piperacillin/tazo 3.375gm/50ml 50 ML IV SCH ×2 (08:35→21:30)
[2019-06-14] MEDS: furosemide 20 MG/2 ML vial IV SCH ×2 (09:15→21:10)
[2019-06-14] MEDS: dexmedetomidin/NS 400mcg/100ml 100 ML IV SCH (10:41)
--- NOTE | 2019-06-14 13:29 | NUR ---
Patient temporarily out of restraints, she is cooperative and is not pulling at her lines. In view of RN Addendum: 06/14/19 at 1331 by Adan Knox RN Amended: Links added.
--- NOTE | 2019-06-14 15:15 | NUR ---
tried patient swallowing ice chips, patient tolerated well. Removed NG tube, patient tolerated well. Tube feed off. Ordered new diet.
--- NOTE | 2019-06-14 17:26 | NUR ---
Patient Daniela Watts. I have received report from Adan ENNIS and had the opportunity to ask questions and assume patient care.
--- NOTE | 2019-06-14 17:26 | NUR ---
Problems repriortized. Patient report given, questions answered & plan of care reviewed with Tato RN, patient stable for transfer per MD orders.
--- NOTE | 2019-06-14 17:50 | NUR ---
Patient transferred to PCU.
--- NOTE | 2019-06-14 18:15 | NUR ---
Patient in room PCU 3023. I have received report from Tato ENNIS and had the opportunity to ask questions and assume patient care. Patient is resting, will continue to monitor.
--- NOTE | 2019-06-14 18:32 | NUR ---
Problems reprioritized. Patient report given, questions answered & plan of care reviewed with Ana ENNIS
[2019-06-14] MEDS: insulin glargine (Lantus) pen - multi-dose SQ SCH (21:00)
[2019-06-14] MEDS: quetiapine 100mg tablet PO SCH (21:12)
[2019-06-14] MEDS: calcium carbonate/vitamin D3 tablet PO SCH (21:12)
[2019-06-15] MEDS: normal saline 1000ml 1,000 ML IV SCH (02:29)
[2019-06-15 03:00] VITALS: BP 145/54
[2019-06-15] MEDS: dextrose 5%-water 1,000 ML IV SCH (05:44)
[2019-06-15 06:00] VITALS: BP 166/84
--- NOTE | 2019-06-15 06:00 | NUR ---
Patient in room PCU 3023. I have received report from Ana ENNIS and had the opportunity to ask questions and assume patient care.
--- NOTE | 2019-06-15 06:20 | NUR ---
Problems reprioritized. Patient report given, questions answered & plan of care reviewed with Tato ENNIS.
[2019-06-15] MEDS: lactulose 20gm/30ml cup PO SCH (08:00)
[2019-06-15] MEDS: furosemide 20 MG/2 ML vial IV SCH (08:36)
[2019-06-15] MEDS: diltiazem CD 120mg capsule (once-daily) PO SCH (08:37)
[2019-06-15] MEDS: duloxetine 30mg CAPSULE.DR PO SCH (08:37)
[2019-06-15] MEDS: lisinopril 20mg tablet PO SCH (08:37)
[2019-06-15] MEDS: busPIRone 5mg tablet PO SCH (08:37)
[2019-06-15] MEDS: lactobacillus rhamnosus 10,000 MMU CELLS/CAPSULE PO SCH (08:37)
[2019-06-15] MEDS: levoTHYROXINE 25mcg tablet PO SCH (08:37)
[2019-06-15] MEDS: pantoprazole 40 MG vial IV SCH (08:37)
[2019-06-15] MEDS: fenofibrate 145mg tablet PO SCH (08:37)
[2019-06-15] MEDS: piperacillin/tazo 3.375gm/50ml 50 ML IV SCH (08:46)
[2019-06-15 10:14] LABS: EOSINOPHILS # (AUTO) 0.5 X10'3 (0-0.9); HEMATOCRIT 31.3 % (35.0-45.0); HEMOGLOBIN 10.4 g/dl (12.0-16.0); LYMPHOCYTES # (AUTO) 0.8 X10'3 (1.1-4.8); LYMPHOCYTES % (AUTO) 17.4 % (21-51); MEAN CORPUSCULAR HGB CONC 33.3 g/dL (33.0-36.5); MEAN CORPUSCULAR VOLUME 93.2 FL (78-98); MEAN PLATELET VOLUME 9.6 FL (7.4-10.4); MONOCYTES % (AUTO) 22.1 % (2-12); NEUTROPHILS # (AUTO) 2.2 X10'3 (1.8-7.7); NEUTROPHILS % (AUTO) 47.5 % (42-75); PLATELET COUNT 266 X10'3 (140-440); RED BLOOD COUNT 3.36 X10'6 (4.20-5.60); RED CELL DISTRIBUTION WIDTH 18.8 % (11.5-14.5); WHITE BLOOD COUNT 4.5 X10'3 (4.5-11.0)
[2019-06-15 10:30] LABS: ALBUMIN 1.8 G/DL (3.4-5.0); ANION GAP 9 (8-16); BLOOD UREA NITROGEN 65 MG/DL (7-18); BUN/CREATININE RATIO 23.1 (6.6-38.0); CALCIUM 8.3 MG/DL (8.5-10.1); CHLORIDE 100 MMOL/L (99-107); CREATININE 2.81 MG/DL (0.40-0.90); GLUCOSE 114 MG/DL (70-104); POTASSIUM 3.5 MMOL/L (3.5-5.1); SODIUM 137 MMOL/L (135-145); TOTAL CARBON DIOXIDE 28.1 MMOL/L (24-32); eGFR 17 ML/MIN
[2019-06-15 11:00] VITALS: BP 169/90
--- NOTE | 2019-06-15 12:02 | NUR ---
Reassessment: Tube feedings discontinued, Patient was advanced to a regular diet and transferred to telemetry unit. She is eating 100% s/p extubation. Receiving treatment for CKD stage 4, COPD. BUE +3, BLE 2+, RUE 2+ edema present; receiving lasix. No nutrition intervention needed at this time. Will continue to follow. Rec: 1. Continue regular diet 2. Continue bowel care as needed 3. Weight per rx Addendum: 06/15/19 at [address] Amended: Links added.
--- NOTE | 2019-06-15 12:04 | NUR ---
PAGER ID: [phone] MESSAGE: Re: Daniela Watts, Room: 3023C. Pt's blood pressure retaken 3 times, continues to be 165-170 systolic. Can we get an order for PRN BP meds. Thank you -Tato PCU #[id number] Dr. Cullen paged concerning Pt's elevated BP's
[2019-06-15] MEDS ORDERED: diltiazem CD 120mg capsule (once-daily) PO ONE (12:50)
--- NOTE | 2019-06-15 16:00 | NUR ---
Pt transfered to [facility] rehab. Report called to RN at [facility]. Tele-box removed and returned to tele-tech. 22g PIV removed, canula intact. Pt's belongings gathered and sent with Pt. Pt wheeled down to lobby in wheelchair by Jiberish. Pt left with [employer] in [facility] for [facility].
== END 2019-06-15 16:21 | DRG 917 ==
LOC: ER 20:46 → ED HOLD 06-09 02:29 → PCU 3S 06-09 07:19 → ICU 2S 06-09 10:30 → PCU 3S 06-14 17:55
PROVIDERS: ADMIT Internal Medicine; ATTEND Internal Medicine
PROC: 30233N1 Transfusion of Nonautologous Red Blood Cells into Peripheral Vein, Percutaneous Approach (ICD-10-PCS; principal; 2019-06-08)
DX: T42.8X1A Poisoning by antiparkinsonism drugs and other central muscle-tone depressants, accidental (unintentional), initial encounter (principal); E43 Unspecified severe protein-calorie malnutrition; G92 Toxic encephalopathy; D62 Acute posthemorrhagic anemia; I13.0 Hypertensive heart and chronic kidney disease with heart failure and stage 1 through stage 4 chronic kidney disease, or unspecified chronic kidney disease; K92.2 Gastrointestinal hemorrhage, unspecified; N18.4 Chronic kidney disease, stage 4 (severe); E87.0 Hyperosmolality and hypernatremia; N17.9 Acute kidney failure, unspecified; Z66 Do not resuscitate; E05.90 Thyrotoxicosis, unspecified without thyrotoxic crisis or storm; D63.8 Anemia in other chronic diseases classified elsewhere; K21.9 Gastro-esophageal reflux disease without esophagitis; E87.5 Hyperkalemia; J44.9 Chronic obstructive pulmonary disease, unspecified; I73.9 Peripheral vascular disease, unspecified; I50.9 Heart failure, unspecified; Z79.899 Other long term (current) drug therapy; Z86.711 Personal history of pulmonary embolism; Z87.891 Personal history of nicotine dependence; Z78.1 Physical restraint status; Z88.8 Allergy status to other drugs, medicaments and biological substances; Z68.31 Body mass index [BMI] 31.0-31.9, adult; Y92.89 Other specified places as the place of occurrence of the external cause
CPT/HCPCS: 36415; 36430; 36600; 70450; 71045; 76937; 80048; 80053; 81001; 82140; 82272; 82803; 82948; 83036; 83605; 83735; 84134; 84145; 84484; 85018; 85025; 85610; 85730; 86885; 86900; 86901; 86920; 87040; 87081; 93005; 93971; 94640; 94760; 96365; 96375; 97116; 97162; 97530; 97535; 99285; C9113; G0378; J0610; J1200; J1630; J1815; J1940; J2060; J2270; J2543; J3486; J7030; J7070; P9016

== ENCOUNTER 2020-02-29 09:01 | Day surgery (SDC) | payer MEDICARE, MEDICAID ==
[~2020-02-29] VITALS: Ht 157.5 cm; Wt 56.8 kg
[~2020-02-29 09:01] MED LIST changes: -BAC10T PO; -CALC-1197 PO; +CALC-1215 PO; +CARCD120C PO; +CARV3.122 PO; -DILT120C52 PO; +IPRA3AMP9 NEB; -MAGN400C PO; -OMEP-50 PO; -QUET-1 PO; +QUET100T33 PO
[2020-02-29 09:12] VITALS: BP 175/109
[2020-02-29] MEDS ORDERED: OMEP-50 PO (09:17)
[2020-02-29] MEDS ORDERED: VILA10TA PO (09:18)
[2020-02-29] MEDS ORDERED: CARV6.252 PO (09:19)
[2020-02-29] MEDS ORDERED: AMLO-708 PO (09:20)
[2020-02-29] MEDS ORDERED: HYDR-4353 PO (09:21)
[2020-02-29] MEDS ORDERED: FLUT1BLS3 (09:21)
[2020-02-29] MEDS ORDERED: fentaNYL/PF 50MCG/1 ML 2ML syringe ONE (09:40)
[2020-02-29] MEDS ORDERED: MIDAZolam 5mg/5ml vial ONE (09:40)
[2020-02-29 10:18] VITALS: BP 141/125
[2020-02-29 10:28] VITALS: BP 161/112
[2020-02-29 10:38] VITALS: BP_SYST 140; BP_SYST 142; BP_SYST 175; BP_DIAS 65; BP_DIAS 69; BP_DIAS 93
[2020-02-29 10:48] VITALS: BP_SYST 143; BP_SYST 158; BP_DIAS 69; BP_DIAS 78
[2020-02-29 10:58] VITALS: BP 139/91
== END 2020-02-29 11:10 | disposition home or self-care (01) ==
LOC: GI LAB 09:01
PROVIDERS: ATTEND Internal Medicine Gastroenterology
DX: Z12.11 Encounter for screening for malignant neoplasm of colon (principal); K63.5 Polyp of colon; D12.0 Benign neoplasm of cecum; D12.8 Benign neoplasm of rectum; K52.9 Noninfective gastroenteritis and colitis, unspecified; K57.30 Diverticulosis of large intestine without perforation or abscess without bleeding; K64.8 Other hemorrhoids; K63.89 Other specified diseases of intestine; Z86.010 Personal history of colon polyps
CPT/HCPCS: 45380; 45385; 99153; C1773; G0500; J2250; J3010; J7040; 88305; 99152; A4620

== ENCOUNTER 2020-08-21 14:55 | Emergency (ER) | payer MEDICARE, MEDICAID ==
[~2020-08-21] VITALS: Ht 157.5 cm; Wt 59.2 kg
[~2020-08-21 14:55] MED LIST changes: +AMLO-708 PO; -CARCD120C PO; -CARV3.122 PO; +CARV6.252 PO; +FLUT1BLS3; +HYDR-4353 PO; -IPRA3AMP9 NEB; +LISI40TA13 PO; -LISI40TA4 PO; +OMEP-50 PO; +VILA10TA PO
[2020-08-21 18:46] VITALS: BP 185/101
--- NOTE | 2020-08-21 18:58 | NUR ---
JOEL Maier informed of patient's BP reading; per PA, proceed with discharge and inform patient to take her BP meds scheduled for this evening as soon as she gets home. Patient verbalized understanding of these instructions.
== END 2020-08-21 19:16 | disposition home or self-care (01) ==
LOC: ER 14:56
DX: T82.49XA Other complication of vascular dialysis catheter, initial encounter (principal); I13.2 Hypertensive heart and chronic kidney disease with heart failure and with stage 5 chronic kidney disease, or end stage renal disease; N18.6 End stage renal disease; K21.9 Gastro-esophageal reflux disease without esophagitis; Z99.2 Dependence on renal dialysis; Z48.00 Encounter for change or removal of nonsurgical wound dressing
CPT/HCPCS: 71045; 99283

== ENCOUNTER 2020-08-22 10:49 | Emergency (ER) | payer MEDICARE, MEDICAID ==
[~2020-08-22] VITALS: Ht 157.5 cm; Wt 60.0 kg
[2020-08-22 11:13] VITALS: BP 194/106
[2020-08-22] MEDS ORDERED: heparin 1,000unit/ml 10ml vial 10 ML ONE (12:27)
[2020-08-22] MEDS ORDERED: LIDOcaine 1%/PF 5ML 10 MG/ML VIAL ONE ×2 (12:28→12:56)
--- NOTE | 2020-08-22 12:42 | NUR ---
IR HERE TO CELERY CUTTER PT.
[2020-08-22] MEDS ORDERED: fentaNYL/PF 50MCG/1 ML 2ML syringe ONE (12:51)
--- NOTE | 2020-08-22 13:27 | NUR ---
pt is back from procedure, resting quietly, on phone
== END 2020-08-22 13:51 | disposition home or self-care (01) ==
LOC: ER 10:50
DX: I13.2 Hypertensive heart and chronic kidney disease with heart failure and with stage 5 chronic kidney disease, or end stage renal disease (principal); N18.6 End stage renal disease; Z99.2 Dependence on renal dialysis; K21.9 Gastro-esophageal reflux disease without esophagitis; E03.9 Hypothyroidism, unspecified; F32.9 Major depressive disorder, single episode, unspecified; E78.00 Pure hypercholesterolemia, unspecified; Z88.8 Allergy status to other drugs, medicaments and biological substances; Z88.6 Allergy status to analgesic agent
CPT/HCPCS: 36558; 76937; 77001; 99285; J1644; J3010

== ENCOUNTER 2021-01-15 08:09 | Inpatient (IN) | payer MEDICARE, MEDICAID ==
[2021-01-15] VITALS (11 sets, daily range): BP systolic 148–197; BP diastolic 75–100
[~2021-01-15] VITALS: Ht 157.5 cm; Wt 62.0 kg
[~2021-01-15 08:09] MED LIST changes: -QUET100T33 PO; +QUET100T34 PO
[2021-01-15 09:04] LABS: BASOPHILS % (AUTO) 0.7 % (0-1); EOSINOPHILS # (AUTO) 0.2 X10'3 (0-0.9); EOSINOPHILS % (AUTO) 3.4 % (0-6); LYMPHOCYTES % (AUTO) 17.2 % (21-51); MEAN CORPUSCULAR HEMOGLOBIN 32.4 PG (27.0-31.0); MEAN CORPUSCULAR HGB CONC 33.9 g/dL (33.0-36.5); MEAN CORPUSCULAR VOLUME 95.5 FL (78-98); MEAN PLATELET VOLUME 8.3 FL (7.4-10.4); MONOCYTES # (AUTO) 0.5 X10'3 (0-0.9); MONOCYTES % (AUTO) 8.5 % (2-12); NEUTROPHILS # (AUTO) 3.9 X10'3 (1.8-7.7); NEUTROPHILS % (AUTO) 70.2 % (42-75); PLATELET COUNT 185 X10'3 (140-440); RED BLOOD COUNT 1.39 X10'6 (4.20-5.60); RED CELL DISTRIBUTION WIDTH 15.2 % (11.5-14.5); WHITE BLOOD COUNT 5.5 X10'3 (4.5-11.0)
[2021-01-15 09:11] LABS: HEMATOCRIT 13.3 % (35.0-45.0); HEMOGLOBIN 4.5 g/dl (12.0-16.0)
[2021-01-15 09:20] LABS: ALANINE AMINOTRANSFERASE 29 U/L (12-78); ALBUMIN 2.4 G/DL (3.4-5.0); ALBUMIN/GLOBULIN RATIO 0.8 (1.1-1.5); ALKALINE PHOSPHATASE 59 IU/L (46-116); ANION GAP 17 (8-16); ASPARTATE AMINO TRANSFERASE 30 U/L (10-37); BILIRUBIN,TOTAL 0.5 MG/DL (0.1-1.0); BLOOD UREA NITROGEN 98 MG/DL (7-18); BUN/CREATININE RATIO 13.5 (6.6-38.0); CALCIUM 7.7 MG/DL (8.5-10.1); CHLORIDE 101 MMOL/L (99-107); CREATININE 7.27 MG/DL (0.40-0.90); GLUCOSE 107 MG/DL (70-104); LIPASE 156 U/L (73-393); POTASSIUM 4.9 MMOL/L (3.5-5.1); SODIUM 138 MMOL/L (135-145); TOTAL CARBON DIOXIDE 20.2 MMOL/L (24-32); TOTAL PROTEIN 5.3 G/DL (6.4-8.2); eGFR 6 ML/MIN
[2021-01-15] MEDS ORDERED: pantoprazole 40 MG vial IV ONE (09:30)
[2021-01-15 09:32] LABS: PARTIAL THROMBOPLASTIN TIME 28 SECONDS (22-32)
[2021-01-15 09:52] LABS: TROPONIN I < 0.04 NG/ML (0.0-0.05)
[2021-01-15] MEDS: pantoprazole 40MG/NS 100ML BAG 100 ML IV SCH ×6 (10:22→20:17)
[2021-01-15] MEDS ORDERED: diphenhydrAMINE 25mg capsule PO PRN (11:35)
[2021-01-15] MEDS ORDERED: acetaminophen 325mg tablet PO PRN ×2 (11:35)
[2021-01-15] MEDS ORDERED: magnesium hydroxide 30ml (MOM) UD suspension PO PRN (11:35)
[2021-01-15] MEDS ORDERED: diphenhydrAMINE 50 mg/ml inj IV PRN (11:35)
[2021-01-15] MEDS ORDERED: mag hydrox/Alum hydrox/simeth 30ml oral suspension PO PRN (11:35)
[2021-01-15] MEDS ORDERED: ondansetron/PF 4mg/2ml inj IV PRN (11:35)
[2021-01-15] MEDS ORDERED: morphine 2 MG/ML inj. syringe IV PRN (11:35)
[2021-01-15] MEDS ORDERED: bisacodyl 10mg suppository rectal RC PRN (11:35)
[2021-01-15] MEDS ORDERED: ondansetron 4mg rapidly disintigrating tab PO PRN (11:35)
[2021-01-15] MEDS ORDERED: HYDROcodone/acetaminophen 5mg/325mg tablet PO PRN (11:35)
[2021-01-15] MEDS: normal saline 1000ml 1,000 ML IV SCH ×2 (11:35→20:33)
[2021-01-15] MEDS ORDERED: acetaminophen 650mg rectal suppository RC PRN (11:35)
[2021-01-15] MEDS ORDERED: HYDROcodone/acetaminophen 10/325mg tab PO PRN (11:35)
[2021-01-15 12:30] LABS: CLARITY,URINE CLEAR (Clear); COLOR,URINE YELLOW (Yellow); GLUCOSE, URINE NEGATIVE (Neg); KETONES,URINE NEGATIVE (Neg); LEUKOCYTE ESTERASE ,URINE NEGATIVE (Neg); NITRITES, URINE NEGATIVE (Neg); OCCULT BLOOD,URINE TRACE-LYSED (Neg); PROTEIN,URINE 300 mg/dl (Neg); UA COLLECTION TYPE CLN CATCH MIDSTREAM; UROBILINOGEN,URINE 0.2 E.U/dL (0.2-1.0)
[2021-01-15 12:34] LABS: BACTERIA,URINE NONE SEEN /HPF (Neg); RBC,URINE NONE SEEN /HPF (0-2); WBC,URINE 0-4 /HPF (0-4)
[2021-01-15 12:35] LABS: MAGNESIUM 2.3 MG/DL (1.5-2.4); PHOSPHORUS 8.5 MG/DL (2.3-4.5)
[2021-01-15 12:35] LABS: MUCUS STRANDS NONE SEEN /LPF (Neg); SQUAMOUS EPITHELIAL CELL,UR FEW /LPF (FEW)
[2021-01-15 13:19] LABS: HEMOGLOBIN A1C < 3.8 % (4.5-6.2)
[2021-01-15] MEDS ORDERED: GABA-530 PO (13:47)
[2021-01-15] MEDS ORDERED: FOLI0.8T19 PO (13:47)
[2021-01-15] MEDS ORDERED: QUET200T31 PO (13:47)
[2021-01-15] MEDS ORDERED: LABE300T2 PO (13:47)
[2021-01-15] MEDS ORDERED: ONDA-103 PO (13:47)
[2021-01-15] MEDS ORDERED: DILT120T3 PO (13:47)
[2021-01-15] MEDS ORDERED: FOSI40TA5 PO (13:47)
[2021-01-15] MEDS ORDERED: CARV6.253 PO (13:47)
[2021-01-15] MEDS ORDERED: FURO40TA4 PO (13:47)
[2021-01-15] MEDS ORDERED: AMLO10TA13 PO (13:47)
[2021-01-15] MEDS ORDERED: SEVE800T8 PO ×2 (14:55)
[2021-01-15] MEDS ORDERED: sevelamer carbonate 800mg tablet PO PRN (15:00)
[2021-01-15] MEDS ORDERED: MIDAZolam 1 MG/ML 5ML VIAL ONE (17:28)
[2021-01-15] MEDS ORDERED: fentaNYL/PF 50MCG/1 ML 2ML syringe ONE (17:28)
[2021-01-15] MEDS ORDERED: LIDOcaine Viscous 15ml cup ONE (17:28)
[2021-01-15] MEDS: docusate sod 100mg capsule PO SCH (20:16)
[2021-01-15] MEDS: carvedilol 6.25mg tablet PO SCH (20:16)
[2021-01-15] MEDS: lisinopril 20mg tablet PO SCH (20:16)
[2021-01-15] MEDS: sevelamer carbonate 800mg tablet PO SCH (20:31)
[2021-01-15] MEDS ORDERED: temazepam 15mg capsule PO PRN (21:00)
[2021-01-15] MEDS ORDERED: quetiapine 100mg tablet PO SCH (21:00)
[2021-01-15] MEDS ORDERED: gabapentin 100mg capsule PO SCH (21:00)
[2021-01-16 00:31] LABS: BASOPHILS % (AUTO) 0.7 % (0-1); EOSINOPHILS # (AUTO) 0.2 X10'3 (0-0.9); EOSINOPHILS % (AUTO) 3.5 % (0-6); LYMPHOCYTES # (AUTO) 1.3 X10'3 (1.1-4.8); LYMPHOCYTES % (AUTO) 21.6 % (21-51); MEAN CORPUSCULAR HEMOGLOBIN 31.1 PG (27.0-31.0); MEAN CORPUSCULAR HGB CONC 34.8 g/dL (33.0-36.5); MEAN CORPUSCULAR VOLUME 89.5 FL (78-98); MEAN PLATELET VOLUME 7.9 FL (7.4-10.4); MONOCYTES # (AUTO) 0.6 X10'3 (0-0.9); MONOCYTES % (AUTO) 9.9 % (2-12); NEUTROPHILS # (AUTO) 3.9 X10'3 (1.8-7.7); NEUTROPHILS % (AUTO) 64.3 % (42-75); PLATELET COUNT 155 X10'3 (140-440); RED BLOOD COUNT 2.07 X10'6 (4.20-5.60); RED CELL DISTRIBUTION WIDTH 17.3 % (11.5-14.5); WHITE BLOOD COUNT 6.1 X10'3 (4.5-11.0)
[2021-01-16 00:44] LABS: HEMATOCRIT 18.6 % (35.0-45.0); HEMOGLOBIN 6.5 g/dl (12.0-16.0)
[2021-01-16] MEDS: pantoprazole 40MG/NS 100ML BAG 100 ML IV SCH ×4 (01:00→09:59)
[2021-01-16 01:20] VITALS: BP 186/84
--- NOTE | 2021-01-16 03:08 | NUR ---
RN UNAVAILABLE TO TAKE REPORT
[2021-01-16 04:25] VITALS: BP 190/79
[2021-01-16 04:30] VITALS: BP 190/79
--- NOTE | 2021-01-16 05:21 | NUR ---
Page out to Bargan for PRN BP medication for post transfusion vitals(SBP 190)
--- NOTE | 2021-01-16 05:53 | NUR ---
Page placed for Dr Gamble. Call placed for Dr Gamble. Message left. Requesting orders for elevated BP s/p blood transfusion
[2021-01-16] MEDS ORDERED: hydrALAZINE 20mg/ml inj. IV PRN (06:20)
[2021-01-16 06:30] VITALS: BP 189/74
--- NOTE | 2021-01-16 06:30 | NUR ---
Patient in room PCU 3014. I have received report from LOLI Carpenter and had the opportunity to ask questions and assume patient care.
[2021-01-16] MEDS ORDERED: nicotine 21mg patch - 24 hr TD SCH (08:00)
[2021-01-16] MEDS ORDERED: amLODIPine 5mg tablet PO SCH (08:00)
[2021-01-16] MEDS ORDERED: diltiazem CD 120mg capsule (once-daily) PO SCH (08:00)
[2021-01-16] MEDS: sevelamer carbonate 800mg tablet PO SCH ×2 (08:00→13:25)
[2021-01-16] MEDS: normal saline 1000ml 1,000 ML IV SCH (08:48)
[2021-01-16] MEDS: docusate sod 100mg capsule PO SCH (08:48)
[2021-01-16] MEDS: lisinopril 20mg tablet PO SCH (08:50)
[2021-01-16] MEDS: carvedilol 6.25mg tablet PO SCH (08:50)
[2021-01-16 09:35] LABS: BASOPHILS # (AUTO) 0.1 X10'3 (0-0.2); BASOPHILS % (AUTO) 0.7 % (0-1); EOSINOPHILS # (AUTO) 0.3 X10'3 (0-0.9); EOSINOPHILS % (AUTO) 3.9 % (0-6); HEMATOCRIT 26.1 % (35.0-45.0); HEMOGLOBIN 8.9 g/dl (12.0-16.0); LYMPHOCYTES % (AUTO) 11.8 % (21-51); MEAN CORPUSCULAR HEMOGLOBIN 30.7 PG (27.0-31.0); MEAN CORPUSCULAR HGB CONC 34.1 g/dL (33.0-36.5); MEAN CORPUSCULAR VOLUME 90.1 FL (78-98); MEAN PLATELET VOLUME 7.7 FL (7.4-10.4); MONOCYTES # (AUTO) 0.7 X10'3 (0-0.9); MONOCYTES % (AUTO) 8.4 % (2-12); NEUTROPHILS # (AUTO) 6.4 X10'3 (1.8-7.7); NEUTROPHILS % (AUTO) 75.2 % (42-75); PLATELET COUNT 175 X10'3 (140-440); RED CELL DISTRIBUTION WIDTH 16.4 % (11.5-14.5); WHITE BLOOD COUNT 8.5 X10'3 (4.5-11.0)
[2021-01-16 09:58] LABS: ALANINE AMINOTRANSFERASE 29 U/L (12-78); ALBUMIN 2.6 G/DL (3.4-5.0); ALBUMIN/GLOBULIN RATIO 0.8 (1.1-1.5); ALKALINE PHOSPHATASE 51 IU/L (46-116); ANION GAP 22 (8-16); ASPARTATE AMINO TRANSFERASE 32 U/L (10-37); BILIRUBIN,TOTAL 0.7 MG/DL (0.1-1.0); BLOOD UREA NITROGEN 112 MG/DL (7-18); BUN/CREATININE RATIO 14.3 (6.6-38.0); CALCIUM 8.1 MG/DL (8.5-10.1); CHLORIDE 106 MMOL/L (99-107); CHOL/HDL RATIO 3.6 (0.00-4.99); CHOLESTEROL 129 MG/DL (0-200); CREATININE 7.85 MG/DL (0.40-0.90); GLUCOSE 80 MG/DL (70-104); HDL CHOLESTEROL 36 MG/DL (35-60); LDL CHOLESTEROL 49 MG/DL (50-100); POTASSIUM 4.6 MMOL/L (3.5-5.1); SODIUM 145 MMOL/L (135-145); TOTAL CARBON DIOXIDE 17.2 MMOL/L (24-32); TOTAL PROTEIN 5.7 G/DL (6.4-8.2); TRIGLYCERIDES 208 MG/DL (20-135); eGFR 5 ML/MIN
[2021-01-16 11:00] VITALS: BP 149/62
[2021-01-16] MEDS ORDERED: FERR324T4 PO (13:29)
--- NOTE | 2021-01-16 15:15 | NUR ---
DC inst provided to pt. IV DC'd, tip intact. All belongings sent w/pt. WC to vehicle.
[2021-01-16] MEDS ORDERED: PANT40TA54 PO (16:21)
== END 2021-01-16 15:31 | disposition home or self-care (01) | DRG 377 ==
LOC: ER 08:10 → ED HOLD 11:48 → PCU 3S 01-16 03:45
PROVIDERS: ADMIT Family Medicine; ATTEND Internal Medicine
PROC: 30233N1 Transfusion of Nonautologous Red Blood Cells into Peripheral Vein, Percutaneous Approach (ICD-10-PCS; principal; 2021-01-15)
PROC: 0DB68ZX Excision of Stomach, Via Natural or Artificial Opening Endoscopic, Diagnostic (ICD-10-PCS; 2021-01-15)
DX: K26.4 Chronic or unspecified duodenal ulcer with hemorrhage (principal); N18.6 End stage renal disease; I50.23 Acute on chronic systolic (congestive) heart failure; E87.2 Acidosis; I13.2 Hypertensive heart and chronic kidney disease with heart failure and with stage 5 chronic kidney disease, or end stage renal disease; J44.9 Chronic obstructive pulmonary disease, unspecified; D50.0 Iron deficiency anemia secondary to blood loss (chronic); E03.9 Hypothyroidism, unspecified; E78.00 Pure hypercholesterolemia, unspecified; E78.5 Hyperlipidemia, unspecified; E86.1 Hypovolemia; F32.A Depression, unspecified; K21.9 Gastro-esophageal reflux disease without esophagitis; I25.10 Atherosclerotic heart disease of native coronary artery without angina pectoris; I48.91 Unspecified atrial fibrillation; K29.70 Gastritis, unspecified, without bleeding; T39.395A Adverse effect of other nonsteroidal anti-inflammatory drugs [NSAID], initial encounter; Z86.711 Personal history of pulmonary embolism; Z72.0 Tobacco use; Z95.0 Presence of cardiac pacemaker; Z99.2 Dependence on renal dialysis; Z87.19 Personal history of other diseases of the digestive system; Z88.8 Allergy status to other drugs, medicaments and biological substances; Y92.89 Other specified places as the place of occurrence of the external cause; Z79.899 Other long term (current) drug therapy; Z71.6 Tobacco abuse counseling
CPT/HCPCS: 36415; 36430; 43239; 71250; 74176; 80053; 80061; 81001; 83036; 83690; 83735; 83880; 84100; 84484; 85025; 85610; 85730; 86885; 86900; 86901; 86920; 93005; 96374; 99152; 99153; 99291; A4620; C1769; C9113; G0378; J2250; J3010; J7030; J7040; P9016

== ENCOUNTER 2021-01-22 13:39 | Emergency (ER) | payer MEDICARE, MEDICAID ==
[~2021-01-22] VITALS: Ht 157.5 cm; Wt 65.9 kg
[~2021-01-22 13:39] MED LIST changes: -ACET-1013 PO; -ALBU18HF2 INH; -AMLO-708 PO; +AMLO10TA13 PO; -BUSP10TA11 PO; -CALC-1215 PO; -CARV6.252 PO; +CARV6.253 PO; +DILT120T3 PO; -DULO-31 PO; +FERR324T4 PO; -FLUT1BLS3; +FOLI0.8T19 PO; +FOSI40TA71 PO; +GABA-530 PO; -HYDR-4353 PO; -LEVO50TA67 PO; -LISI40TA13 PO; -OMEP-50 PO; +PANT40TA54 PO; -QUET100T34 PO; +QUET200T31 PO; +SEVE800T8 PO
[2021-01-22 14:40] VITALS: BP 161/71
[2021-01-22] MEDS ORDERED: HYDROcodone/acetaminophen 5mg/325mg tablet PO ONE ×2 (14:55→18:55)
[2021-01-22 15:29] LABS: BASOPHILS % (AUTO) 0.8 % (0-1); EOSINOPHILS # (AUTO) 0.4 X10'3 (0-0.9); EOSINOPHILS % (AUTO) 7.4 % (0-6); HEMATOCRIT 25.2 % (35.0-45.0); HEMOGLOBIN 8.5 g/dl (12.0-16.0); LYMPHOCYTES # (AUTO) 0.7 X10'3 (1.1-4.8); LYMPHOCYTES % (AUTO) 13.5 % (21-51); MEAN CORPUSCULAR HEMOGLOBIN 31.3 PG (27.0-31.0); MEAN CORPUSCULAR VOLUME 92.2 FL (78-98); MEAN PLATELET VOLUME 7.9 FL (7.4-10.4); MONOCYTES # (AUTO) 0.5 X10'3 (0-0.9); MONOCYTES % (AUTO) 8.6 % (2-12); NEUTROPHILS # (AUTO) 3.8 X10'3 (1.8-7.7); NEUTROPHILS % (AUTO) 69.7 % (42-75); PLATELET COUNT 229 X10'3 (140-440); RED BLOOD COUNT 2.73 X10'6 (4.20-5.60); RED CELL DISTRIBUTION WIDTH 17.8 % (11.5-14.5); WHITE BLOOD COUNT 5.5 X10'3 (4.5-11.0)
[2021-01-22 15:49] LABS: ALANINE AMINOTRANSFERASE 47 U/L (12-78); ALBUMIN 2.9 G/DL (3.4-5.0); ALBUMIN/GLOBULIN RATIO 0.8 (1.1-1.5); ALKALINE PHOSPHATASE 90 IU/L (46-116); ANION GAP 15 (8-16); ASPARTATE AMINO TRANSFERASE 48 U/L (10-37); BILIRUBIN,TOTAL 0.7 MG/DL (0.1-1.0); BLOOD UREA NITROGEN 73 MG/DL (7-18); BUN/CREATININE RATIO 9.5 (6.6-38.0); CALCIUM 7.9 MG/DL (8.5-10.1); CHLORIDE 102 MMOL/L (99-107); CREATININE 7.69 MG/DL (0.40-0.90); GLUCOSE 99 MG/DL (70-104); POTASSIUM 5.5 MMOL/L (3.5-5.1); SODIUM 138 MMOL/L (135-145); TOTAL CARBON DIOXIDE 21.5 MMOL/L (24-32); TOTAL PROTEIN 6.4 G/DL (6.4-8.2); eGFR 5 ML/MIN
[2021-01-22 15:55] LABS: PARTIAL THROMBOPLASTIN TIME 32 SECONDS (22-32)
[2021-01-22] MEDS ORDERED: HYDR-3965 PO (18:44)
== END 2021-01-22 19:15 | disposition home or self-care (01) ==
LOC: ER 13:39
DX: K91.840 Postprocedural hemorrhage of a digestive system organ or structure following a digestive system procedure (principal); R53.1 Weakness; G89.29 Other chronic pain; Y84.8 Other medical procedures as the cause of abnormal reaction of the patient, or of later complication, without mention of misadventure at the time of the procedure; Y73.1 Therapeutic (nonsurgical) and rehabilitative gastroenterology and urology devices associated with adverse incidents
CPT/HCPCS: 36415; 80053; 85025; 85610; 85730; 99283

== ENCOUNTER 2021-05-26 01:29 | Emergency (ER) | payer MEDICARE, MEDICAID ==
[~2021-05-26] VITALS: Ht 157.5 cm; Wt 72.7 kg
[~2021-05-26 01:29] MED LIST changes: -CARV6.253 PO; -DILT120T3 PO; +DOXA4TAB3 PO; -FERR324T4 PO; +FERR325T28 PO; +LABE300T2 PO; +LEVO50TA8 PO; +ONDA-103 PO; +PANT-47 PO; -PANT40TA54 PO; -QUET200T31 PO; +SODI650T29 PO
[2021-05-26] MEDS ORDERED: acetaminophen 325mg tablet PO ONE (01:40)
[2021-05-26 02:20] LABS: BASOPHILS % (AUTO) 1.3 % (0-1); EOSINOPHILS # (AUTO) 0.2 X10'3 (0-0.9); EOSINOPHILS % (AUTO) 6.3 % (0-6); HEMATOCRIT 27.8 % (35.0-45.0); HEMOGLOBIN 9.2 g/dl (12.0-16.0); LYMPHOCYTES # (AUTO) 0.7 X10'3 (1.1-4.8); LYMPHOCYTES % (AUTO) 18.9 % (21-51); MEAN CORPUSCULAR HGB CONC 33.2 g/dL (33.0-36.5); MEAN CORPUSCULAR VOLUME 99.6 FL (78-98); MEAN PLATELET VOLUME 9.3 FL (7.4-10.4); MONOCYTES # (AUTO) 0.5 X10'3 (0-0.9); MONOCYTES % (AUTO) 14.1 % (2-12); NEUTROPHILS # (AUTO) 2.3 X10'3 (1.8-7.7); NEUTROPHILS % (AUTO) 59.4 % (42-75); PLATELET COUNT 188 X10'3 (140-440); RED CELL DISTRIBUTION WIDTH 15.9 % (11.5-14.5); WHITE BLOOD COUNT 3.9 X10'3 (4.5-11.0)
[2021-05-26 02:51] LABS: ALANINE AMINOTRANSFERASE 33 U/L (12-78); ALBUMIN/GLOBULIN RATIO 0.9 (1.1-1.5); ALKALINE PHOSPHATASE 154 IU/L (46-116); ANION GAP 9 (8-16); ASPARTATE AMINO TRANSFERASE 44 U/L (10-37); BILIRUBIN,TOTAL 0.8 MG/DL (0.1-1.0); BLOOD UREA NITROGEN 24 MG/DL (7-18); BUN/CREATININE RATIO 6.9 (6.6-38.0); CALCIUM 8.1 MG/DL (8.5-10.1); CHLORIDE 101 MMOL/L (99-107); GLUCOSE 91 MG/DL (70-104); POTASSIUM 4.2 MMOL/L (3.5-5.1); SODIUM 143 MMOL/L (135-145); TOTAL CARBON DIOXIDE 32.9 MMOL/L (24-32); TOTAL PROTEIN 6.4 G/DL (6.4-8.2); eGFR 13 ML/MIN
[2021-05-26 03:54] VITALS: BP 169/101
== END 2021-05-26 05:22 | disposition home or self-care (01) ==
LOC: ER 01:30
DX: S09.90XA Unspecified injury of head, initial encounter (principal); Z20.822 Contact with and (suspected) exposure to COVID-19; S13.9XXA Sprain of joints and ligaments of unspecified parts of neck, initial encounter; S00.81XA Abrasion of other part of head, initial encounter; M54.2 Cervicalgia; R51.9 Headache, unspecified; J90 Pleural effusion, not elsewhere classified; I11.0 Hypertensive heart disease with heart failure; E78.00 Pure hypercholesterolemia, unspecified; I13.2 Hypertensive heart and chronic kidney disease with heart failure and with stage 5 chronic kidney disease, or end stage renal disease; N18.6 End stage renal disease; J44.9 Chronic obstructive pulmonary disease, unspecified; E05.90 Thyrotoxicosis, unspecified without thyrotoxic crisis or storm; E03.9 Hypothyroidism, unspecified; G89.29 Other chronic pain; F32.A Depression, unspecified; K21.9 Gastro-esophageal reflux disease without esophagitis; Z99.2 Dependence on renal dialysis; Z86.2 Personal history of diseases of the blood and blood-forming organs and certain disorders involving the immune mechanism; Z95.0 Presence of cardiac pacemaker; Z98.890 Other specified postprocedural states; Z72.89 Other problems related to lifestyle; Z86.711 Personal history of pulmonary embolism; Z88.8 Allergy status to other drugs, medicaments and biological substances; Z88.6 Allergy status to analgesic agent; Z79.899 Other long term (current) drug therapy; W06.XXXA Fall from bed, initial encounter; Y93.89 Activity, other specified; Y92.89 Other specified places as the place of occurrence of the external cause; Y99.8 Other external cause status
CPT/HCPCS: 36415; 70450; 71045; 72125; 80053; 85025; 87635; 93005; 99285; C9803

== ENCOUNTER 2021-06-19 14:52 | Emergency (ER) | payer MEDICARE, MEDICAID ==
[~2021-06-19] VITALS: Ht 165.1 cm; Wt 72.7 kg
[~2021-06-19 14:52] MED LIST changes: +CARV6.253 PO; +DILT120T3 PO; +DOXY-224 PO; -FERR325T28 PO; -ONDA-103 PO; +QUET200T31 PO; -SEVE800T8 PO; -SODI650T29 PO
[2021-06-19] MEDS ORDERED: ondansetron/PF 4mg/2ml inj IV ONE (16:15)
[2021-06-19] MEDS ORDERED: morphine 4 MG/ML inj SYRINge IV ONE (16:15)
[2021-06-19] MEDS ORDERED: acetaminophen 325mg tablet PO ONE (17:15)
[2021-06-19 17:53] VITALS: BP 157/88
== END 2021-06-19 18:55 | disposition home or self-care (01) ==
LOC: ER 14:53
DX: R51.9 Headache, unspecified (principal); M54.2 Cervicalgia; M25.512 Pain in left shoulder; I11.0 Hypertensive heart disease with heart failure; I50.9 Heart failure, unspecified; E78.00 Pure hypercholesterolemia, unspecified; J44.9 Chronic obstructive pulmonary disease, unspecified; K21.9 Gastro-esophageal reflux disease without esophagitis; I12.0 Hypertensive chronic kidney disease with stage 5 chronic kidney disease or end stage renal disease; N18.6 End stage renal disease; D63.1 Anemia in chronic kidney disease; E03.9 Hypothyroidism, unspecified; G89.29 Other chronic pain; Z86.2 Personal history of diseases of the blood and blood-forming organs and certain disorders involving the immune mechanism; Z87.01 Personal history of pneumonia (recurrent); Z86.711 Personal history of pulmonary embolism; Z99.2 Dependence on renal dialysis; Z95.0 Presence of cardiac pacemaker; Z72.89 Other problems related to lifestyle; Z88.8 Allergy status to other drugs, medicaments and biological substances; Z79.899 Other long term (current) drug therapy; Z79.2 Long term (current) use of antibiotics; W01.0XXA Fall on same level from slipping, tripping and stumbling without subsequent striking against object, initial encounter; Y93.89 Activity, other specified; Y92.89 Other specified places as the place of occurrence of the external cause; Y99.8 Other external cause status
CPT/HCPCS: 70450; 72125; 73030; 93005; 96374; 96375; 99284; J2270; J2405; 99285

== ENCOUNTER 2022-04-07 06:48 | Day surgery (SDC) | payer MEDICARE, MEDICAID ==
[~2022-04-07] VITALS: Ht 149.9 cm; Wt 63.6 kg
[~2022-04-07 06:48] MED LIST changes: -LABE300T2 PO
[2022-04-07] MEDS ORDERED: normal saline 1000ml 1,000 ML IV PRN (07:10)
[2022-04-07 07:38] VITALS: BP 126/84
[2022-04-07] MEDS ORDERED: BUSP10TA3 PO (08:14)
[2022-04-07] MEDS ORDERED: midazolam 1 mg/ML 2ml injection ONE (08:15)
[2022-04-07] MEDS ORDERED: heparin 1,000unit/ml 10ml vial 10 ML ONE (08:15)
[2022-04-07] MEDS ORDERED: LIDOcaine 1% 30ml preserv. free vial ONE (08:16)
[2022-04-07] MEDS ORDERED: fentaNYL/PF 50MCG/1 ML 2ML syringe ONE (08:16)
[2022-04-07 08:27] LABS: ALBUMIN 3.1 G/DL (3.4-5.0); ANION GAP 11 (8-16); BLOOD UREA NITROGEN 47 MG/DL (7-18); BUN/CREATININE RATIO 9.2 (6.6-38.0); CALCIUM 7.5 MG/DL (8.5-10.1); CHLORIDE 95 MMOL/L (99-107); CREATININE 5.13 MG/DL (0.40-0.90); GLUCOSE 81 MG/DL (70-104); POTASSIUM 5.9 MMOL/L (3.5-5.1); SODIUM 132 MMOL/L (135-145); TOTAL CARBON DIOXIDE 26.5 MMOL/L (24-32); eGFR 8 ML/MIN
[2022-04-07] MEDS ORDERED: OMEP40CA21 PO (08:29)
[2022-04-07] MEDS ORDERED: LOPE-144 PO (08:29)
[2022-04-07] MEDS ORDERED: LABE300T4 PO (08:29)
[2022-04-07] MEDS ORDERED: MELA10TA2 PO (08:29)
[2022-04-07] MEDS ORDERED: DIPH25CA83 PO (08:29)
[2022-04-07] MEDS ORDERED: DULO-31 PO (08:29)
[2022-04-07] MEDS ORDERED: CALC668T PO (08:29)
[2022-04-07 08:35] LABS: BASOPHILS % (AUTO) 0.9 % (0-1); EOSINOPHILS # (AUTO) 0.2 X10'3 (0-0.9); EOSINOPHILS % (AUTO) 5.4 % (0-6); HEMATOCRIT 29.2 % (35.0-45.0); HEMOGLOBIN 9.5 g/dl (12.0-16.0); LYMPHOCYTES # (AUTO) 1.2 X10'3 (1.1-4.8); LYMPHOCYTES % (AUTO) 26.7 % (21-51); MEAN CORPUSCULAR HEMOGLOBIN 32.4 PG (27.0-31.0); MEAN CORPUSCULAR HGB CONC 32.4 g/dL (33.0-36.5); MEAN PLATELET VOLUME 9.6 FL (7.4-10.4); MONOCYTES # (AUTO) 0.9 X10'3 (0-0.9); MONOCYTES % (AUTO) 19.8 % (2-12); NEUTROPHILS # (AUTO) 2.1 X10'3 (1.8-7.7); NEUTROPHILS % (AUTO) 47.2 % (42-75); PLATELET COUNT 115 X10'3 (140-440); RED BLOOD COUNT 2.92 X10'6 (4.20-5.60); WHITE BLOOD COUNT 4.4 X10'3 (4.5-11.0)
[2022-04-07] MEDS ORDERED: iohexol 300mg/ml 100ml inj. ONE (09:53)
[2022-04-07 10:02] LABS: TOTAL CELLS COUNTED 100
[2022-04-07 10:03] LABS: PLATELET ESTIMATE DECREASED
[2022-04-07 10:19] VITALS: BP 132/79
[2022-04-07 10:30] VITALS: BP 153/86
[2022-04-07 10:45] VITALS: BP 134/78
[2022-04-07 11:00] VITALS: BP 142/93
[2022-04-07 11:15] VITALS: BP 150/99
== END 2022-04-07 11:40 | disposition home or self-care (01) ==
LOC: SSTAY O 06:48
PROVIDERS: ATTEND Radiology Vascular & Interventional Radiology
DX: Z49.01 Encounter for fitting and adjustment of extracorporeal dialysis catheter (principal); I13.2 Hypertensive heart and chronic kidney disease with heart failure and with stage 5 chronic kidney disease, or end stage renal disease; I50.9 Heart failure, unspecified; N18.6 End stage renal disease; E03.9 Hypothyroidism, unspecified; J44.9 Chronic obstructive pulmonary disease, unspecified; F32.9 Major depressive disorder, single episode, unspecified; E78.00 Pure hypercholesterolemia, unspecified; D64.9 Anemia, unspecified; K21.9 Gastro-esophageal reflux disease without esophagitis; Z87.01 Personal history of pneumonia (recurrent); Z88.8 Allergy status to other drugs, medicaments and biological substances; Z79.899 Other long term (current) drug therapy; Z90.710 Acquired absence of both cervix and uterus; Z98.890 Other specified postprocedural states
CPT/HCPCS: 36415; 36558; 76937; 77001; 80048; 85025; 85610; 99152; 99153; C1750; C1769; C1894; J1644; J2250; J3010; J3490; J7030; Q9967; 85007; A4615; A4620; A9270

== ENCOUNTER 2022-04-07 20:47 | Emergency (ER) | payer MEDICARE, MEDICAID ==
[~2022-04-07] VITALS: Ht 149.9 cm; Wt 61.4 kg
[~2022-04-07 20:47] MED LIST changes: +BUSP10TA3 PO; +CALC668T PO; +DIPH25CA83 PO; +DULO-31 PO; +LABE300T4 PO; +LOPE-144 PO; +MELA10TA2 PO; +OMEP40CA21 PO
[2022-04-07] MEDS ORDERED: morphine 4 MG/ML inj SYRINge IV ONE (22:25)
[2022-04-07 23:00] LABS: APTT 46 SECONDS (22-32)
[2022-04-07 23:02] LABS: ALANINE AMINOTRANSFERASE 14 U/L (12-78); ALBUMIN 3.4 G/DL (3.4-5.0); ALKALINE PHOSPHATASE 139 IU/L (46-116); ANION GAP 10 (8-16); ASPARTATE AMINO TRANSFERASE 28 U/L (10-37); BILIRUBIN,TOTAL 1.5 MG/DL (0.1-1.0); BLOOD UREA NITROGEN 23 MG/DL (7-18); BUN/CREATININE RATIO 7.9 (6.6-38.0); CHLORIDE 96 MMOL/L (99-107); CREATININE 2.92 MG/DL (0.40-0.90); GLUCOSE 82 MG/DL (70-104); POTASSIUM 4.2 MMOL/L (3.5-5.1); SODIUM 136 MMOL/L (135-145); TOTAL CARBON DIOXIDE 30.4 MMOL/L (24-32); TOTAL PROTEIN 6.7 G/DL (6.4-8.2); eGFR 16 ML/MIN
[2022-04-07 23:13] LABS: BASOPHILS % (AUTO) 1.4 % (0-1); EOSINOPHILS # (AUTO) 0.1 X10'3 (0-0.9); EOSINOPHILS % (AUTO) 2.1 % (0-6); HEMATOCRIT 28.7 % (35.0-45.0); HEMOGLOBIN 9.8 g/dl (12.0-16.0); LYMPHOCYTES # (AUTO) 0.9 X10'3 (1.1-4.8); LYMPHOCYTES % (AUTO) 30.9 % (21-51); MEAN CORPUSCULAR HEMOGLOBIN 33.6 PG (27.0-31.0); MEAN CORPUSCULAR VOLUME 98.7 FL (78-98); MEAN PLATELET VOLUME 9.7 FL (7.4-10.4); MONOCYTES # (AUTO) 0.8 X10'3 (0-0.9); MONOCYTES % (AUTO) 24.9 % (2-12); NEUTROPHILS # (AUTO) 1.2 X10'3 (1.8-7.7); NEUTROPHILS % (AUTO) 40.7 % (42-75); PLATELET COUNT 110 X10'3 (140-440); RED CELL DISTRIBUTION WIDTH 15.7 % (11.5-14.5); WHITE BLOOD COUNT 3.1 X10'3 (4.5-11.0)
[2022-04-08 01:01] LABS: PLATELET ESTIMATE DECREASED; TOTAL CELLS COUNTED 100
[2022-04-08 01:02] LABS: SMUDGE CELLS 1+
[2022-04-08 04:00] VITALS: BP 152/71
== END 2022-04-08 05:48 | disposition home or self-care (01) ==
LOC: ER 20:48
DX: T82.41XA Breakdown (mechanical) of vascular dialysis catheter, initial encounter (principal); I13.0 Hypertensive heart and chronic kidney disease with heart failure and stage 1 through stage 4 chronic kidney disease, or unspecified chronic kidney disease; I50.9 Heart failure, unspecified; E78.00 Pure hypercholesterolemia, unspecified; J44.9 Chronic obstructive pulmonary disease, unspecified; K21.9 Gastro-esophageal reflux disease without esophagitis; N18.9 Chronic kidney disease, unspecified; E03.9 Hypothyroidism, unspecified; Z88.5 Allergy status to narcotic agent
CPT/HCPCS: 36415; 71045; 80053; 85007; 85025; 85610; 85730; 86885; 86900; 86901; J2270; 93005; 96374; 99285; A6449

== ENCOUNTER 2022-05-04 12:06 | Emergency (ER) | payer MEDICARE, MEDICAID ==
[~2022-05-04] VITALS: Ht 149.9 cm; Wt 61.4 kg
[~2022-05-04 12:06] MED LIST changes: -AMLO10TA13 PO; -DOXA4TAB3 PO; -DOXY-224 PO; -PANT-47 PO; -VILA10TA PO
--- NOTE | 2022-05-04 12:26 | NUR ---
morrow placed and UA obtained.
[2022-05-04 12:57] LABS: BASOPHILS % (AUTO) 1.1 % (0-1); EOSINOPHILS # (AUTO) 0.3 X10'3 (0-0.9); EOSINOPHILS % (AUTO) 9.1 % (0-6); HEMATOCRIT 31.2 % (35.0-45.0); HEMOGLOBIN 10.2 g/dl (12.0-16.0); LYMPHOCYTES # (AUTO) 1.1 X10'3 (1.1-4.8); LYMPHOCYTES % (AUTO) 39.8 % (21-51); MEAN CORPUSCULAR HEMOGLOBIN 32.3 PG (27.0-31.0); MEAN CORPUSCULAR HGB CONC 32.8 g/dL (33.0-36.5); MEAN CORPUSCULAR VOLUME 98.4 FL (78-98); MEAN PLATELET VOLUME 10.7 FL (7.4-10.4); MONOCYTES # (AUTO) 0.4 X10'3 (0-0.9); MONOCYTES % (AUTO) 15.2 % (2-12); NEUTROPHILS % (AUTO) 34.8 % (42-75); PLATELET COUNT 94 X10'3 (140-440); RED BLOOD COUNT 3.17 X10'6 (4.20-5.60); RED CELL DISTRIBUTION WIDTH 15.8 % (11.5-14.5); WHITE BLOOD COUNT 2.9 X10'3 (4.5-11.0)
--- NOTE | 2022-05-04 13:19 | NUR ---
Straight catheter attempted at this time with no urine out put. Patient states she is oliguric R/T kidney failure. Addendum: 05/04/22 at 1321 by MADDY JOEL Louise made aware.
[2022-05-04] MEDS ORDERED: ondansetron/PF 4mg/2ml inj IV ONE (13:30)
[2022-05-04] MEDS ORDERED: morphine 4 MG/ML inj SYRINge IV ONE (13:30)
[2022-05-04 13:40] LABS: ALANINE AMINOTRANSFERASE 13 U/L (12-78); ALBUMIN 3.5 G/DL (3.4-5.0); ALKALINE PHOSPHATASE 143 IU/L (46-116); ANION GAP 18 (8-16); ASPARTATE AMINO TRANSFERASE 42 U/L (10-37); BILIRUBIN,TOTAL 1.3 MG/DL (0.1-1.0); BLOOD UREA NITROGEN 44 MG/DL (7-18); BUN/CREATININE RATIO 7.7 (6.6-38.0); CALCIUM 8.3 MG/DL (8.5-10.1); CHLORIDE 91 MMOL/L (99-107); CREATININE 5.68 MG/DL (0.40-0.90); GLUCOSE 99 MG/DL (70-104); LIPASE 57 U/L (73-393); SODIUM 132 MMOL/L (135-145); TOTAL CARBON DIOXIDE 23.5 MMOL/L (24-32); TOTAL PROTEIN 6.9 G/DL (6.4-8.2); eGFR 7 ML/MIN
[2022-05-04] MEDS ORDERED: mag hydrox/Alum hydrox/simeth 30ml oral suspension PO ONE (14:10)
[2022-05-04] MEDS ORDERED: LIDOcaine Viscous 15ml cup MM ONE (14:10)
[2022-05-04] MEDS ORDERED: pantoprazole 40mg Tablet.DR PO ONE (14:10)
[2022-05-04 14:27] LABS: TOTAL CELLS COUNTED 100
[2022-05-04 14:28] LABS: PLATELET ESTIMATE DECREASED
[2022-05-04 14:29] LABS: ACANTHOCYTES FEW; ANISOCYTOSIS 1+; SMUDGE CELLS FEW; TEAR DROP CELLS FEW
[2022-05-04 14:52] VITALS: BP 179/73
== END 2022-05-04 18:02 | disposition home or self-care (01) ==
LOC: ER 12:07
DX: E87.6 Hypokalemia (principal); R10.13 Epigastric pain; I13.0 Hypertensive heart and chronic kidney disease with heart failure and stage 1 through stage 4 chronic kidney disease, or unspecified chronic kidney disease; N18.9 Chronic kidney disease, unspecified; J44.9 Chronic obstructive pulmonary disease, unspecified; E07.9 Disorder of thyroid, unspecified; F32.A Depression, unspecified; Z88.6 Allergy status to analgesic agent; Z79.899 Other long term (current) drug therapy; Z79.1 Long term (current) use of non-steroidal anti-inflammatories (NSAID); Z79.2 Long term (current) use of antibiotics
CPT/HCPCS: 36415; 80053; 83690; 85007; 85025; 93005; 96374; 96375; 99284; J2270; J2405; A4353

== ENCOUNTER 2022-09-06 04:37 | Emergency (ER) | payer MEDICARE, MEDICAID ==
[~2022-09-06] VITALS: Ht 152.4 cm; Wt 63.6 kg
[2022-09-06 04:46] VITALS: BP 122/69
[2022-09-06] MEDS ORDERED: acetaminophen 325mg tablet PO ONE ×2 (04:55)
--- NOTE | 2022-09-06 05:33 | NUR ---
Mary tr-in-law [phone]
== END 2022-09-06 05:59 | disposition home or self-care (01) ==
LOC: ER 04:38
DX: S01.81XA Laceration without foreign body of other part of head, initial encounter (principal); E03.9 Hypothyroidism, unspecified; I13.0 Hypertensive heart and chronic kidney disease with heart failure and stage 1 through stage 4 chronic kidney disease, or unspecified chronic kidney disease; I50.9 Heart failure, unspecified; N18.6 End stage renal disease; E78.00 Pure hypercholesterolemia, unspecified; K21.9 Gastro-esophageal reflux disease without esophagitis; J44.9 Chronic obstructive pulmonary disease, unspecified; Z88.5 Allergy status to narcotic agent; Z88.8 Allergy status to other drugs, medicaments and biological substances; W19.XXXA Unspecified fall, initial encounter; Y93.89 Activity, other specified; Y92.89 Other specified places as the place of occurrence of the external cause; Y99.8 Other external cause status
CPT/HCPCS: 70450; 99284; A6449